=== PATIENT | female | born 1975 | race Caucasian/White ===

== ENCOUNTER 2016-09-01 19:23 | Inpatient (IN) | payer MEDICAID ==
[~2016-09-01] VITALS: Ht 167.6 cm; Wt 95.1 kg
[2016-09-01 19:48] VITALS: Ht 167.6 cm; Wt 95.1 kg
[2016-09-01 19:49] VITALS: BP 127/67; PULSE 101; RESP 18
[2016-09-01] MEDS ORDERED: PREN-93 PO (19:52)
[2016-09-01] MEDS ORDERED: LABE100T39 PO (19:53)
[2016-09-01] MEDS ORDERED: NIFEdipine 10 MG CAP PO ONE (20:30)
--- NOTE | 2016-09-01 20:30 | RADRPT ---
PROCEDURE: US OB biophysical profile. CLINICAL INDICATION: evaluation, contractions, bleeding TECHNIQUE: Multiple sonographic images of the pelvis were obtained. The images were reviewed on a PACS workstation. COMPARISON: No prior studies are available for comparison. FINDINGS: The cervix is closed and measures 4.1 cm in length. There is a single viable intrauterine gestation. Cardiac activity is present with 152 beats per min [place]. There is a vertex presentation. The placenta is anterior. There is no evidence of placental abruption. There is a mildly low amount of amniotic fluid with an MYNOR = 7.5 cm. Biophysical profile: movement 2/2 tone 2/2. breathing 2/2 MYNOR 2/2 Total 11/25 RPTAT: AA . IMPRESSION: Normal biophysical profile. Mildly low MYNOR of 7.5 cm. The cervix is closed and measures 4.1 cm in length. Physician Ashley Date Time Electronically viewed and signed by Physician Ashley on 09/01/2016 20:30 /
[2016-09-01] MEDS: LACTATED RINGER'S 1,000 ML IV SCH ×2 (20:38→21:35)
[2016-09-01 20:51] LABS: ADD SCAN DIFF NO
[2016-09-01 20:55] LABS: BASOPHILS % 0.3 % (0.0-2.0); EOSINOPHILS # 0.1 10^3/ul (0.0-0.5); EOSINOPHILS % 0.9 % (0.0-7.0); HEMATOCRIT 32.3 % (37.0-47.0); HEMOGLOBIN 10.7 g/dl (12.0-16.0); LYMPHOCYTES # 1.7 10^3/ul (0.8-2.9); LYMPHOCYTES % 15.1 % (15.0-51.0); MEAN CORPUSCULAR HEMOGLOBIN 27.9 pg (29.0-33.0); MEAN CORPUSCULAR HGB CONC 33.1 g/dl (32.0-37.0); MEAN CORPUSCULAR VOLUME 84.1 fl (82.0-101.0); MEAN PLATELET VOLUME 10.2 fl (7.4-10.4); MONOCYTES % 8.8 % (0.0-11.0); NEUTROPHIL # 8.5 10^3/ul (1.6-7.5); NEUTROPHILS % 74.3 % (39.0-77.0); PLATELET COUNT 248 10^3/UL (140-415); RED BLOOD COUNT 3.84 10^6/ul (4.20-5.40); RED CELL DISTRIBUTION WIDTH 12.7 % (11.5-14.5); WHITE BLOOD COUNT 11.5 10^3/ul (4.8-10.8)
[2016-09-01 20:57] LABS: ADD UMIC YES; URINE BILIRUBIN (Dip) NEGATIVE (NEGATIVE); URINE BLOOD (Dip) 3+ (NEGATIVE); URINE COLOR LT. YELLOW (YELLOW); URINE GLUCOSE (Dip) NEGATIVE (NEGATIVE); URINE KETONES (Dip) NEGATIVE (NEGATIVE); URINE LEUKOCYTE ESTERASE (Dip) NEGATIVE (NEGATIVE); URINE NITRITE (Dip) NEGATIVE (NEGATIVE); URINE TOTAL PROTEIN (Dip) NEGATIVE (NEGATIVE); URINE UROBILINOGEN (Dip) 0.2 E.U./dL (0.1-1.0)
[2016-09-01 21:16] LABS: BACTERIA,URINE FEW; SQUAMOUS EPITHELIAL CELL,UR MODERATE
[2016-09-01] MEDS ORDERED: LACTATED RINGER'S 1,000 ML IV SCH (21:17)
[2016-09-01] MEDS ORDERED: MAGNESIUM SULFATE 4 GM/100 ML 100 ML IV ONE (21:30)
[2016-09-01] MEDS: MAGNESIUM SULFATE 20 GM/500 ML 500 ML IV SCH (22:34)
--- NOTE | 2016-09-01 23:33 | TRIAGE ---
OB Triage Datetime Report Generated by CPN: 09/01/2016 23:33 Datetime: 09/01/2016 23:00 Labor Evaluation Frequency: IRREG Monitor Mode: External Duration (sec)2399: 60-70 Quality: Mild Resting Tone [place]: Relaxed Pain Presence: None/Denies Pain Type: N/A Datetime: 09/01/2016 22:34 Stage of : Antepartum Datetime: 09/01/2016 22:05 Stage of : Antepartum Temperature Route: Oral Contraction Comments: PT DENIES UC'S Pain Presence: None/Denies Pain Type: N/A Datetime: 09/01/2016 21:50 Assessment Type: Admission Assessment Maternal Assessment Level of Consciousness: Fully Conscious DTR's/Clonus: DTRs 2+; No Clonus Headache: Denies Blurred Vision: No Respiratory Effort: Unlabored; Regular Rhythm; Equal Expansion Breath Sounds, Left: Clear and Equal Breath Sounds, Right: Clear and Equal Nausea/Vomiting: Denies RUQ Epigastric Pain: Denies Lower Extremities Edema: None Degree: None Upper Extremities Edema: None Degree: None Facial Edema: None Fall Risk Assessment History of Falling: (0) No Secondary Diagnosis: (0) No Ambulatory Aid: (0) Bedrest/Nurse Assist IV Therapy: (0) No Gait: (0) Normal/Bedrest/Immobile Mental Status: (0) Oriented to Own Ability Fall Score: 0 Fall Risk Score Definition: No Risk: No action required Datetime: 09/01/2016 21:39 Time of Arrival: 09/01/2016 21:39 EGA: 32.6 Arrived By: Wheelchair Arrived From: Other Unit in Hospital Datetime: 09/01/2016 21:23 Vaginal Exam Membrane Status: Intact Datetime: 09/01/2016 21:00 Stage of : OB Triage Labor Evaluation Frequency: 3-5 Monitor Mode: External Duration (sec)2399: 60 Duration (sec)2399: 30-50 Quality: Mild Pattern: Normal: <= 5 Contractions in 10 Minutes Resting Tone [place]: Relaxed Heart Rate FHR Baseline Rate: 135 Monitor Mode: External US FHR Baseline Changes: No Baseline Change Variability: Moderate 6-25 bpm Accelerations: 15X15 Decelerations: None Category: Category I Datetime: 09/01/2016 20:49 Heart Rate FHR Baseline Rate: 135 Monitor Mode: External US FHR Baseline Changes: No Baseline Change Variability: Moderate 6-25 bpm Accelerations: 10X10 Decelerations: None Category: Category I Datetime: 09/01/2016 20:00 Stage of : OB Triage Labor Evaluation Frequency: 3-5 Monitor Mode: External Duration (sec)2399: 60 Quality: Mild Pattern: Normal: <= 5 Contractions in 10 Minutes Resting Tone [place]: Relaxed Heart Rate FHR Baseline Rate: 135 Monitor Mode: External US FHR Baseline Changes: No Baseline Change Variability: Moderate 6-25 bpm Accelerations: 10X10 Decelerations: None Category: Category I Datetime: 09/01/2016 19:38 Stage of : OB Triage Assessment Type: Triage Time of Arrival: 09/01/2016 19:19 EGA: 32.6 Arrived By: Wheelchair Arrived From: Home Chief Complaint: BLEEDING THAT STARTED @ 1730 LIKE A PERIOD Movement: Present Contractions: Irregular Rupture of Membranes: Unsure Vaginal Discharge: Present Recent Sexual Intercouse: Denies Abdominal Trauma: Not Applicable Patient Complaints: None Additional Patient Complaints: PT STATES HX OF HTN ON LABETALOL BID Time Provider Notified: 09/01/2016 20:00 Provider Notified: PARK Initial Plan: CALL MD, EFM Maternal Assessment Level of Consciousness: Fully Conscious DTR's/Clonus: DTRs 2+; No Clonus Headache: Denies Blurred Vision: No Respiratory Effort: Unlabored; Regular Rhythm; Equal Expansion Breath Sounds, Left: Clear and Equal Breath Sounds, Right: Clear and Equal Nausea/Vomiting: Denies RUQ Epigastric Pain: Denies Lower Extremities Edema: Bilateral Lower Extremities Degree: 1+ Upper Extremities Edema: None Facial Edema: None Temperature Route: Oral Fall Risk Assessment History of Falling: (0) No Secondary Diagnosis: (0) No Ambulatory Aid: (0) Bedrest/Nurse Assist IV Therapy: (0) No Gait: (0) Normal/Bedrest/Immobile Mental Status: (0) Oriented to Own Ability Fall Score: 0 Fall Risk Score Definition: No Risk: No action required Monitor Mode: External Monitor Mode: External US Pain Assessment Pain Scale: 0
[2016-09-01] MEDS: BETAMET NA PHOS/AC(6 MG/ML) 5ML INJ IM SCH (23:57)
[2016-09-02] MEDS: DOCUSATE SODIUM 100 MG CAP PO SCH (09:02)
[2016-09-02] MEDS: MULTIVIT/MIN/FOLATE/IRON/PREN TAB PO SCH (09:02)
[2016-09-02] MEDS: MAGNESIUM SULFATE 20 GM/500 ML 500 ML IV SCH ×2 (09:02→19:08)
[2016-09-02] MEDS: LABETALOL 100 MG TAB PO SCH ×2 (09:05→21:26)
[2016-09-02] MEDS: LACTATED RINGER'S 1,000 ML IV SCH ×3 (10:22→23:40)
--- NOTE | 2016-09-02 15:00 | RADRPT ---
PROCEDURE: US OB. CLINICAL INDICATION: Low MYNOR , pain TECHNIQUE: Transabdominal views of the pelvis are available for review. COMPARISON: 09/01/16 FINDINGS: There is a single intrauterine gestation in a vertex position. The heart rate is noted at 129 -132 bpm. The placenta is anterior. RPTAT: AA IMPRESSION: Single intrauterine gestation in a vertex position. .Dwayne Massey MD, MD Date Time Electronically viewed and signed by .Dwayne Massey MD, on 09/02/2016 15:00 .S/
--- NOTE | 2016-09-02 21:00 | HP ---
Date/Time of Note Date/Time of Note late entry DATE: 09/01/16 OB - History Hx of Present Free Text/Dictation admitted at 34+ weeks C/O vaginal bleeding started 1700 PM 09/01/2016 Last Menstrual Period: Jan 16, 2016 Estimated Due Date: Oct 22, 2016 : 3 Para: 2 Care: Good Care Ultrasounds: Normal mid trimester US Obstetrical Complications: None Medical Complications: Other (Chronic HTN ) Past Family/Social History * Past Medical, Surgical, Family and Obstetric Histories reviewed from chart. Blood Type: O+ Rubella: immune RPR/VDRL: Negative GBS Status: Unknown HBsAG: Negative OB Admission Exam Vital Signs Vital Signs Vital Signs Date Time Temp Pulse Resp B/P Pulse Ox O2 Delivery O2 Flow Rate FiO2 09/01/16 19:49 98.9 101 18 127/67 Room Air Physical Exam HEENT: WNL Heart: Rhythm Normal Lungs: Clear, Equal Abdomen: WNL Extremities: Normal Reflexes: Normal Cervical Dilatation: Fingertip Effacement: 0% Station: -3 Membranes: Intact Heart Rate: 140's Decelerations: Early Decelerations Varibility: Marked Contractions on Admission: < 5 Minutes Apart Date/Time Contractions Began: 09/01/2016 1700 PM Frequency of Contractions: ? Duration: ? Intensity: Mild Last 72 hours Lab Results CBC & BMP 09/01/16 20:38 Magnesium Level Test 09/02/16 05:23 09/02/16 13:01 09/02/16 18:25 Magnesium Level 4.3 H 4.7 H 4.9 H OB Assessment/Plan Reason for admission: labor Other Assessment: 34 + weeks gestation Other plan: tocolysis of labor SOFIA TORRES MD September 02, 2016 21:00
--- NOTE | 2016-09-02 21:02 | PN ---
Date/Time of Note Date/Time of Note DATE: 09/02/16 TIME: 21:00 OB Subjective Subjective Subjective No more C/O vaginal bleeding or uterine contractions OB Objective Objective Objective VSS P/E; unchanged on EFM no UCs seen OB Assessment/Plan Reason for admission: labor Other Assessment: resolving labor Other plan: will D/C magnesium sulfate next day SOFIA TORRES MD September 02, 2016 21:02
[2016-09-02] MEDS: BETAMET NA PHOS/AC(6 MG/ML) 5ML INJ IM SCH (23:59)
[2016-09-03] MEDS: MAGNESIUM SULFATE 20 GM/500 ML 500 ML IV SCH ×2 (05:02→15:15)
[2016-09-03] MEDS: MULTIVIT/MIN/FOLATE/IRON/PREN TAB PO SCH (08:48)
[2016-09-03] MEDS: DOCUSATE SODIUM 100 MG CAP PO SCH (08:48)
[2016-09-03] MEDS: LABETALOL 100 MG TAB PO SCH (08:48)
[2016-09-03] MEDS: LACTATED RINGER'S 1,000 ML IV SCH ×2 (13:05→20:01)
[2016-09-03] MEDS: NIFEdipine 10 MG CAP PO SCH ×2 (18:22→23:56)
--- NOTE | 2016-09-03 20:19 | DS ---
Date/Time of Note Date/Time of Note home next day if stays without uterine contractions DATE: 09/03/16 TIME: 20:17 Obstetrical Discharge Record Final Diagnosis Final Diagnosis: not delivered Other Final Diagnosis labor Complications Tocolytics: Magnesium Sulfate, Other (nifedipine ) Condition on Discharge Physical Assessment Voiding: Yes Bowel Movement: Yes Breast: Soft, non-tender, Filling Fundus: Other (gravid ) Abdomen and Incision: soft and gravid Episiotomy: NA Calf Tenderness: No Patient Condition: Good SOFIA TORRES MD September 03, 2016 20:19
--- NOTE | 2016-09-03 20:22 | DS ---
Date/Time of Note Date/Time of Note DATE: 09/03/16 TIME: 20:19 Discharge Summary Admission/Discharge Info Admit Date/Time September 01, 2016 at 21:15 Discharge Date/Time 09/04/2016 Final Diagnosis S/P labor Patient Condition: Good Procedures none Hx of Present Illness 41 y/o female admitted in labor and tocolysis of labor Hospital Course uncomplicated Home Meds Reported Medications Labetalol Hcl (Labetalol Hcl) 100 Mg Tab, 100 MG PO BID, TAB 09/01/16 Vit No.124/Iron/FA ( Vitamin Tablet) 1 Each Tablet, 1 EACH PO, TAB 09/01/16 Follow-up Plan 2 days in clinic Primary Care Provider Care Physician No Primary Pending Labs Laboratory Tests Test 09/02/16 23:55 09/03/16 05:40 09/03/16 11:45 09/03/16 18:00 Magnesium Level 4.8mg/dl (1.7-2.5) 4.9mg/dl (1.7-2.5) 4.9mg/dl (1.7-2.5) 4.7mg/dl (1.7-2.5) SOFIA TORRES MD September 03, 2016 20:22
--- NOTE | 2016-09-03 20:25 | PD.PPDC ---
[facility] [employer] Discharge Instruction Provider Information Physician Information 41 y/o female admitted with UCs and had tocolysis of labor Diagnosis Final Diagnosis: S/P uterine contractions Condition Patient Condition: Good Diet Diet: Resume Regular Diet Activity/Restrictions Activity: Bedrest May Shower Restrictions: No Exercising No Lifting Nothing in the Vagina Follow-up Follow-up with Physician: 1, 2, Day/Days (in clinic) Return to clinic for [employer] Instructions: Excessive Vaginal Bleeding SOFIA TORRES MD September 03, 2016 20:25
[2016-09-03] MEDS: SENNA TAB PO SCH (21:55)
[2016-09-03] MEDS ORDERED: MAGNESIUM HYDROXIDE 30ML CUP PO PRN (22:00)
[2016-09-04] MEDS: LACTATED RINGER'S 1,000 ML IV SCH (02:01)
[2016-09-04] MEDS: NIFEdipine 10 MG CAP PO SCH (06:28)
[2016-09-04] MEDS: MULTIVIT/MIN/FOLATE/IRON/PREN TAB PO SCH (09:18)
[2016-09-04] MEDS: SENNA TAB PO SCH (09:18)
[2016-09-04] MEDS: DOCUSATE SODIUM 100 MG CAP PO SCH (09:18)
== END 2016-09-04 10:20 | disposition home or self-care (01) | DRG 781 ==
LOC: OBT 19:23 → L-D 19:23 → OBG 21:15 → OBT 21:15
PROVIDERS: ADMIT Obstetrics & Gynecology; ATTEND Obstetrics & Gynecology
DX: O46.93 Antepartum hemorrhage, unspecified, third trimester (principal); O10.913 Unspecified pre-existing hypertension complicating pregnancy, third trimester; Z3A.34 34 weeks gestation of pregnancy
CPT/HCPCS: 36415; 76815; 76817; 76818; 81001; 81003; 83735; 85025; 87086; 96360; G0463; J0702; J3475; J7120

== ENCOUNTER 2016-09-16 20:33 | Outpatient (CLI) | payer MEDICAID ==
[~2016-09-16] VITALS: Ht 165.1 cm; Wt 96.7 kg
[~2016-09-16 20:33] MED LIST: PREN-93 PO
[2016-09-16 21:11] VITALS: BP 141/87; PULSE 115; RESP 18
[2016-09-16] MEDS ORDERED: CALC600T5 PO (21:16)
[2016-09-16] MEDS ORDERED: PRO20 PO (21:16)
[2016-09-16] MEDS ORDERED: FERR134T PO (21:16)
--- NOTE | 2016-09-16 21:52 | RADRPT ---
PROCEDURE: US OB biophysical profile. CLINICAL INDICATION: Biophysical profile and amniotic fluid index request. TECHNIQUE: Multiple sonographic images of the pelvis were obtained. The images were reviewed on a PACS workstation. COMPARISON: None FINDINGS: Presentation: Cephalic Cardiac activity is present with 146 beats per minute. The placenta is anterior grade II. Amniotic fluid index: 15 cm Biophysical profile: movement 2/2 tone 2/2. breathing 2/2 MYNOR 2/2 Total 11/25 IMPRESSION: 1. Normal biophysical profile. 2. Amniotic fluid index: 15 cm RPTAT:AAJJ . Physician Keely Date Time Electronically viewed and signed by Physician Keely on 09/16/2016 21:52 ADRIANA/
[2016-09-16 22:04] LABS: ADD UMIC NO; URINE BILIRUBIN (Dip) NEGATIVE (NEGATIVE); URINE BLOOD (Dip) NEGATIVE (NEGATIVE); URINE COLOR LT. YELLOW (YELLOW); URINE GLUCOSE (Dip) NEGATIVE (NEGATIVE); URINE KETONES (Dip) NEGATIVE (NEGATIVE); URINE LEUKOCYTE ESTERASE (Dip) NEGATIVE (NEGATIVE); URINE NITRITE (Dip) NEGATIVE (NEGATIVE); URINE TOTAL PROTEIN (Dip) NEGATIVE (NEGATIVE); URINE UROBILINOGEN (Dip) 0.2 E.U./dL (0.1-1.0)
--- NOTE | 2016-09-16 22:33 | PN ---
Date/Time of Note Date/Time of Note DATE: 09/16/16 TIME: 22:21 OB Subjective Subjective Subjective was sent for NST and BPP for PIH/ch HTN AT [id number] was admitted forPTL and HTN on 09/01/16 sent home with procardia 20mg q6hr and labetalil 100mg q12hr no subjective sxs OB Objective Objective Objective BP 141/87 131/77 121/70 TRACING reactive CAT I uc 10min apqrt not symptomatic neg pretibioal edema' no proteinuria HEENT: WNL Heart: Rhythm Normal Lungs: Clear, Equal Abdomen: WNL Extremities: Normal Reflexes: Normal OB Assessment/Plan Other Assessment: hx of PTL on procardia 20mg q6hr HTN on labeltalol 100mg q12hr Other plan: f/u at [facility] clinic for biweekly antepartum test along with f/u at clinic RAYMOND DALEY MD September 16, 2016 22:32
--- NOTE | 2016-09-16 22:37 | TRIAGE ---
OB Triage Datetime Report Generated by CPN: 09/16/2016 22:36 Datetime: 09/16/2016 22:12 Stage of : OB Triage Monitor Mode: External Quality: Mild Pattern: Normal: <= 5 Contractions in 10 Minutes Resting Tone [place]: Relaxed Heart Rate FHR Baseline Rate: 140 Monitor Mode: External US Variability: Moderate 6-25 bpm Accelerations: 15X15 Decelerations: None Category: Category I Datetime: 09/16/2016 21:50 Stage of : OB Triage Labor Evaluation Frequency: 10-12min Monitor Mode: External Duration (sec)2399: 40-50sec Quality: Mild Pattern: Normal: <= 5 Contractions in 10 Minutes Resting Tone [place]: Relaxed Contraction Comments: pt denies feeling ucs. Heart Rate FHR Baseline Rate: 140 Monitor Mode: External US FHR Baseline Changes: No Baseline Change Variability: Moderate 6-25 bpm Accelerations: 15X15 Decelerations: None Category: Category I Datetime: 09/16/2016 21:19 Time of Arrival: 09/16/2016 20:30 EGA: 34.6 Arrived By: Ambulatory Arrived From: Home Chief Complaint: w/ hx low TOÑO-A, HTN and PTL sent from clinic for NST/BPP Movement: Present Contractions: Denies/Absent Rupture of Membranes: Denies Vaginal Bleeding: None Vaginal Discharge: Denies Recent Sexual Intercouse: Denies Abdominal Trauma: Not Applicable Patient Complaints: None Time Provider Notified: 09/16/2016 21:50 Provider Notified: Dr Kincaid Initial Plan: NST/BPP Datetime: 09/16/2016 20:51 Stage of : OB Triage Maternal Assessment Level of Consciousness: Fully Conscious Headache: Denies Blurred Vision: No Respiratory Effort: Unlabored Nausea/Vomiting: Denies RUQ Epigastric Pain: Denies Facial Edema: None Labor Evaluation Frequency: plac ed Monitor Mode: External Resting Tone [place]: Relaxed Monitor Mode: External US Comments: FHT 140 Pain Assessment Pain Scale: 0 Pain Presence: None/Denies Pain Type: N/A Datetime: 09/04/2016 10:00 Stage of : Antepartum Labor Evaluation Frequency: NONE Monitor Mode: External Resting Tone [place]: Relaxed Heart Rate FHR Baseline Rate: 140 FHR Baseline Changes: No Baseline Change Variability: Moderate 6-25 bpm Accelerations: 15X15 Decelerations: None Category: Category I Pain Assessment Pain Scale: 0 Pain Presence: None/Denies Pain Goal: 3 Datetime: 09/04/2016 09:00 Stage of : Antepartum Labor Evaluation Frequency: 2 IN AN HOUR Monitor Mode: External Duration (sec)2399: 40-50 Quality: Mild Pattern: Normal: <= 5 Contractions in 10 Minutes Resting Tone [place]: Relaxed Heart Rate FHR Baseline Rate: 140 FHR Baseline Changes: No Baseline Change Variability: Moderate 6-25 bpm Accelerations: 15X15 Decelerations: None Category: Category I Pain Assessment Pain Scale: 0 Pain Presence: None/Denies Pain Goal: 3 Datetime: 09/04/2016 08:30 Assessment Type: Ongoing Assessment Maternal Assessment Level of Consciousness: Fully Conscious DTR's/Clonus: DTRs 2+; No Clonus Headache: Denies Blurred Vision: No Respiratory Effort: Unlabored; Regular Rhythm; Equal Expansion Breath Sounds, Left: Clear and Equal Breath Sounds, Right: Clear and Equal Nausea/Vomiting: Denies RUQ Epigastric Pain: Denies Lower Extremities Edema: None Degree: None Upper Extremities Edema: None Degree: None Facial Edema: None Fall Risk Assessment History of Falling: (0) No Secondary Diagnosis: (0) No Ambulatory Aid: (0) Bedrest/Nurse Assist IV Therapy: (0) No Gait: (0) Normal/Bedrest/Immobile Mental Status: (0) Oriented to Own Ability Fall Score: 0 Fall Risk Score Definition: No Risk: No action required Datetime: 09/04/2016 08:00 Stage of : Antepartum Labor Evaluation Frequency: NONE Monitor Mode: External Resting Tone [place]: Relaxed Heart Rate FHR Baseline Rate: 140 FHR Baseline Changes: No Baseline Change Variability: Moderate 6-25 bpm Accelerations: 15X15 Decelerations: None Category: Category I Pain Assessment Pain Scale: 0 Pain Presence: None/Denies Pain Goal: 3 Datetime: 09/04/2016 07:00 Stage of : Antepartum Labor Evaluation Frequency: x3 Monitor Mode: External Duration (sec)2399: 40-50 Quality: Mild Pattern: Normal: <= 5 Contractions in 10 Minutes Resting Tone [place]: Relaxed Heart Rate FHR Baseline Rate: 130 Monitor Mode: External US Variability: Moderate 6-25 bpm Accelerations: 15X15 Decelerations: None Category: Category I Datetime: 09/04/2016 06:00 Stage of : Antepartum Labor Evaluation Frequency: occasional Monitor Mode: External Duration (sec)2399: 40-50 Quality: Mild Pattern: Normal: <= 5 Contractions in 10 Minutes Resting Tone [place]: Relaxed Heart Rate FHR Baseline Rate: 130 Monitor Mode: External US Variability: Moderate 6-25 bpm Accelerations: 15X15 Decelerations: None Category: Category I Pain Assessment Pain Scale: 0 Pain Presence: None/Denies Pain Type: N/A Pain Goal: 0 Datetime: 09/04/2016 04:57 Stage of : Antepartum Labor Evaluation Frequency: occasional Monitor Mode: External Duration (sec)2399: 40-50 Quality: Mild Pattern: Normal: <= 5 Contractions in 10 Minutes Resting Tone [place]: Relaxed Heart Rate FHR Baseline Rate: 130 Monitor Mode: External US Variability: Moderate 6-25 bpm Accelerations: 15X15 Decelerations: None Category: Category I Datetime: 09/04/2016 04:00 Stage of : Antepartum Labor Evaluation Frequency: irregular Monitor Mode: External Duration (sec)2399: 60-80 Quality: Mild Pattern: Normal: <= 5 Contractions in 10 Minutes Resting Tone [place]: Relaxed Heart Rate FHR Baseline Rate: 130 Monitor Mode: External US Variability: Moderate 6-25 bpm Accelerations: 15X15 Decelerations: None Category: Category I Datetime: 09/04/2016 03:00 Stage of : Antepartum Labor Evaluation Frequency: occasional Monitor Mode: External Duration (sec)2399: 50-60 Quality: Mild Pattern: Normal: <= 5 Contractions in 10 Minutes Resting Tone [place]: Relaxed Heart Rate FHR Baseline Rate: 130 Monitor Mode: External US Variability: Moderate 6-25 bpm Accelerations: 15X15 Decelerations: None Category: Category I Datetime: 09/04/2016 02:00 Labor Evaluation Frequency: x5 Monitor Mode: External Duration (sec)2399: 40-90 Quality: Mild Resting Tone [place]: Relaxed Contraction Comments: pt without complaint of uc pain. Heart Rate FHR Baseline Rate: 130 Monitor Mode: External US FHR Baseline Changes: No Baseline Change Variability: Moderate 6-25 bpm Accelerations: 15X15 Decelerations: None Category: Category I Datetime: 09/04/2016 01:00 Labor Evaluation Frequency: x3 Monitor Mode: External Duration (sec)2399: 80-100 Quality: Mild Resting Tone [place]: Relaxed Contraction Comments: pt without complaint of uc pain. Heart Rate FHR Baseline Rate: 130 Monitor Mode: External US FHR Baseline Changes: No Baseline Change Variability: Moderate 6-25 bpm Accelerations: 15X15 Decelerations: None Category: Category I Datetime: 09/04/2016 00:00 Labor Evaluation Frequency: x5 Monitor Mode: External Duration (sec)2399: 40-80 Quality: Mild Resting Tone [place]: Relaxed Contraction Comments: pt without complaint of uc pain. Heart Rate FHR Baseline Rate: 130 Monitor Mode: External US FHR Baseline Changes: No Baseline Change Variability: Moderate 6-25 bpm Accelerations: 15X15 Decelerations: None Category: Category I Datetime: 09/03/2016 23:55 Stage of : Antepartum Temperature Route: Oral Datetime: 09/03/2016 23:00 Labor Evaluation Frequency: x3 Monitor Mode: External Duration (sec)2399: 40 Quality: Mild Resting Tone [place]: Relaxed Contraction Comments: pt without complaint of uc pain. Heart Rate FHR Baseline Rate: 130 Monitor Mode: External US FHR Baseline Changes: No Baseline Change Variability: Moderate 6-25 bpm Accelerations: 10X10 Decelerations: None Category: Category I Datetime: 09/03/2016 22:00 Labor Evaluation Frequency: none Monitor Mode: External Resting Tone [place]: Relaxed Heart Rate FHR Baseline Rate: 130 Monitor Mode: External US FHR Baseline Changes: No Baseline Change Variability: Moderate 6-25 bpm Accelerations: 15X15 Decelerations: None Category: Category I Datetime: 09/03/2016 21:00 Labor Evaluation Frequency: none Monitor Mode: External Resting Tone [place]: Relaxed Heart Rate FHR Baseline Rate: 130 Monitor Mode: External US FHR Baseline Changes: No Baseline Change Variability: Moderate 6-25 bpm Accelerations: 15X15 Decelerations: None Category: Category I Datetime: 09/03/2016 20:45 Assessment Type: Ongoing Assessment Maternal Assessment Level of Consciousness: Fully Conscious DTR's/Clonus: DTRs 2+; No Clonus Headache: Denies Blurred Vision: No Respiratory Effort: Unlabored; Regular Rhythm; Equal Expansion Breath Sounds, Left: Clear and Equal Breath Sounds, Right: Clear and Equal Nausea/Vomiting: Denies RUQ Epigastric Pain: Denies Lower Extremities Edema: None Degree: None Upper Extremities Edema: None Degree: None Facial Edema: None Fall Risk Assessment History of Falling: (0) No Secondary Diagnosis: (0) No Ambulatory Aid: (0) Bedrest/Nurse Assist IV Therapy: (20) Yes Gait: (0) Normal/Bedrest/Immobile Mental Status: (0) Oriented to Own Ability Fall Score: 20 Fall Risk Score Definition: No Risk: No action required Datetime: 09/03/2016 20:44 Stage of : Antepartum Temperature Route: Oral Datetime: 09/03/2016 20:00 Labor Evaluation Frequency: x2 Monitor Mode: External Duration (sec)2399: 70 Quality: Mild Resting Tone [place]: Relaxed Contraction Comments: pt without complaint of uc pain. Heart Rate FHR Baseline Rate: 130 Monitor Mode: External US FHR Baseline Changes: No Baseline Change Variability: Moderate 6-25 bpm Accelerations: 15X15 Decelerations: None Category: Category I Datetime: 09/03/2016 19:22 Stage of : Antepartum Datetime: 09/03/2016 19:00 Stage of : Antepartum Labor Evaluation Frequency: NONE Monitor Mode: External Resting Tone [place]: Relaxed Heart Rate FHR Baseline Rate: 130 FHR Baseline Changes: No Baseline Change Variability: Moderate 6-25 bpm Accelerations: 15X15 Decelerations: None Category: Category I Pain Assessment Pain Scale: 0 Pain Presence: None/Denies Pain Goal: 3 Datetime: 09/03/2016 18:00 Stage of : Antepartum Labor Evaluation Frequency: 2 IN N HOUR Duration (sec)2399: 50-70 Quality: Mild Pattern: Normal: <= 5 Contractions in 10 Minutes Resting Tone [place]: Relaxed Heart Rate FHR Baseline Rate: 130 FHR Baseline Changes: No Baseline Change Variability: Moderate 6-25 bpm Accelerations: 15X15 Decelerations: None Category: Category I Pain Assessment Pain Scale: 0 Pain Presence: None/Denies Pain Goal: 3 Datetime: 09/03/2016 17:00 Stage of : Antepartum Maternal Assessment Level of Consciousness: Fully Conscious DTR's/Clonus: DTRs 1+ Headache: Denies Blurred Vision: No Nausea/Vomiting: Denies RUQ Epigastric Pain: Denies Facial Edema: None Labor Evaluation Frequency: NONE Monitor Mode: External Resting Tone [place]: Relaxed Heart Rate FHR Baseline Rate: 130 FHR Baseline Changes: No Baseline Change Variability: Moderate 6-25 bpm Accelerations: 15X15 Decelerations: None Category: Category I Pain Assessment Pain Scale: 0 Pain Presence: None/Denies Pain Goal: 3 Datetime: 09/03/2016 16:00 Stage of : Antepartum Maternal Assessment Level of Consciousness: Fully Conscious DTR's/Clonus: DTRs 1+ Headache: Denies Blurred Vision: No Breath Sounds, Left: Clear and Equal Breath Sounds, Right: Clear and Equal Nausea/Vomiting: Denies RUQ Epigastric Pain: Denies Facial Edema: None Labor Evaluation Frequency: 1 IN AN HOUR Monitor Mode: External Duration (sec)2399: 50 Quality: Mild Pattern: Normal: <= 5 Contractions in 10 Minutes Resting Tone [place]: Relaxed Heart Rate FHR Baseline Rate: 130 Monitor Mode: External US FHR Baseline Changes: No Baseline Change Variability: Moderate 6-25 bpm Accelerations: 15X15 Decelerations: None Category: Category I Pain Assessment Pain Scale: 0 Pain Presence: None/Denies Pain Goal: 3 Datetime: 09/03/2016 14:00 Stage of : Antepartum Maternal Assessment Level of Consciousness: Fully Conscious DTR's/Clonus: DTRs 1+ Headache: Denies Blurred Vision: No Nausea/Vomiting: Denies RUQ Epigastric Pain: Denies Facial Edema: None Labor Evaluation Frequency: NONE Monitor Mode: External Resting [place]one [place]: Relaxed Heart Rate FHR Baseline Rate: 130 Monitor Mode: External US FHR Baseline Changes: No Baseline Change Variability: Moderate 6-25 bpm Accelerations: 15X15 Decelerations: None Category: Category I Pain Assessment Pain Scale: 0 Pain Presence: None/Denies Pain Goal: 3 Datetime: 09/03/2016 13:00 Stage of : Antepartum Maternal Assessment Level of Consciousness: Fully Conscious DTR's/Clonus: DTRs 1+ Headache: Denies Blurred Vision: No Breath Sounds, Left: Clear and Equal Breath Sounds, Right: Clear and Equal Nausea/Vomiting: Denies RUQ Epigastric Pain: Denies Facial Edema: None Labor Evaluation Frequency: NONE Monitor Mode: External Resting [place]one [place]: Relaxed Heart Rate FHR Baseline Rate: 130 Monitor Mode: External US FHR Baseline Changes: No Baseline Change Variability: Moderate 6-25 bpm Accelerations: 15X15 Decelerations: None Category: Category I Pain Assessment Pain Scale: 0 Pain Presence: None/Denies Pain Goal: 3 Datetime: 09/03/2016 12:00 Stage of : Antepartum Maternal Assessment Level of Consciousness: Fully Conscious DTR's/Clonus: DTRs 1+ Headache: Denies Blurred Vision: No Breath Sounds, Left: Clear and Equal Breath Sounds, Right: Clear and Equal Nausea/Vomiting: Denies RUQ Epigastric Pain: Denies Facial Edema: None Labor Evaluation Frequency: NONE Monitor Mode: External Resting Tone [place]: Relaxed Heart Rate FHR Baseline Rate: 130 Monitor Mode: External US FHR Baseline Changes: No Baseline Change Variability: Moderate 6-25 bpm Accelerations: 15X15 Decelerations: None Category: Category I Pain Assessment Pain Scale: 0 Pain Presence: None/Denies Pain Goal: 3 Datetime: 09/03/2016 11:00 Stage of : Antepartum Maternal Assessment Level of Consciousness: Fully Conscious DTR's/Clonus: DTRs 1+ Headache: Denies Blurred Vision: No Breath Sounds, Left: Clear and Equal Breath Sounds, Right: Clear and Equal Nausea/Vomiting: Denies RUQ Epigastric Pain: Denies Facial Edema: None Labor Evaluation Frequency: NONE Monitor Mode: External Resting [place]one [place]: Relaxed Heart Rate FHR Baseline Rate: 130 Monitor Mode: External US FHR Baseline Changes: No Baseline Change Variability: Moderate 6-25 bpm Accelerations: 15X15 Decelerations: None Category: Category I Pain Assessment Pain Scale: 0 Pain Presence: None/Denies Pain Goal: 3 Datetime: 09/03/2016 10:00 Stage of : Antepartum Maternal Assessment Level of Consciousness: Fully Conscious DTR's/Clonus: DTRs 1+ Headache: Denies Blurred Vision: No Breath Sounds, Left: Clear and Equal Breath Sounds, Right: Clear and Equal Nausea/Vomiting: Denies RUQ Epigastric Pain: Denies Facial Edema: None Labor Evaluation Frequency: NONE Monitor Mode: External Resting [place]one [place]: Relaxed Heart Rate FHR Baseline Rate: 130 Monitor Mode: External US FHR Baseline Changes: No Baseline Change Variability: Moderate 6-25 bpm Accelerations: 15X15 Decelerations: None Category: Category I Pain Assessment Pain Scale: 0 Pain Presence: None/Denies Pain Goal: 3 Datetime: 09/03/2016 09:00 Stage of : Antepartum Maternal Assessment Level of Consciousness: Fully Conscious DTR's/Clonus: DTRs 1+ Headache: Denies Blurred Vision: No Breath Sounds, Left: Clear and Equal Breath Sounds, Right: Clear and Equal Nausea/Vomiting: Denies RUQ Epigastric Pain: Denies Facial Edema: None Labor Evaluation Frequency: NONE Monitor Mode: External Resting [place]one [place]: Relaxed Heart Rate FHR Baseline Rate: 125 Monitor Mode: External US FHR Baseline Changes: No Baseline Change Variability: Moderate 6-25 bpm Accelerations: 15X15 Decelerations: None Category: Category I Pain Assessment Pain Scale: 0 Pain Presence: None/Denies Pain Goal: 3 Datetime: 09/03/2016 08:00 Stage of : Antepartum Maternal Assessment Level of Consciousness: Fully Conscious DTR's/Clonus: DTRs 1+ Headache: Denies Blurred Vision: No Breath Sounds, Left: Clear and Equal Breath Sounds, Right: Clear and Equal Nausea/Vomiting: Denies RUQ Epigastric Pain: Denies Facial Edema: None Labor Evaluation Frequency: NONE Monitor Mode: External Resting [place]one [place]: Relaxed Heart Rate FHR Baseline Rate: 130 Monitor Mode: External US FHR Baseline Changes: No Baseline Change Variability: Moderate 6-25 bpm Accelerations: 15X15 Decelerations: None Category: Category I Pain Assessment Pain Scale: 0 Pain Presence: None/Denies Pain Goal: 3 Datetime: 09/03/2016 07:41 Assessment Type: Ongoing Assessment Maternal Assessment Level of Consciousness: Fully Conscious DTR's/Clonus: DTRs 2+; No Clonus Headache: Denies Blurred Vision: No Respiratory Effort: Unlabored; Regular Rhythm; Equal Expansion Breath Sounds, Left: Clear and Equal Breath Sounds, Right: Clear and Equal Nausea/Vomiting: Denies RUQ Epigastric Pain: Denies Lower Extremities Edema: None Degree: None Upper Extremities Edema: None Degree: None Facial Edema: None Fall Risk Assessment History of Falling: (0) No Secondary Diagnosis: (0) No Ambulatory Aid: (0) Bedrest/Nurse Assist IV Therapy: (0) No Gait: (0) Normal/Bedrest/Immobile Mental Status: (0) Oriented to Own Ability Fall Score: 0 Fall Risk Score Definition: No Risk: No action required Datetime: 09/03/2016 07:11 Stage of : Antepartum Datetime: 09/03/2016 06:55 Labor Evaluation Frequency: none Monitor Mode: External Resting Tone [place]: Relaxed Heart Rate FHR Baseline Rate: 125 Monitor Mode: External US FHR Baseline Changes: No Baseline Change Variability: Moderate 6-25 bpm Accelerations: 15X15 Decelerations: None Category: Category I Datetime: 09/03/2016 06:00 Labor Evaluation Frequency: none Monitor Mode: External Resting Tone [place]: Relaxed Heart Rate FHR Baseline Rate: 125 Monitor Mode: External US FHR Baseline Changes: No Baseline Change Variability: Moderate 6-25 bpm Accelerations: 15X15 Decelerations: None Category: Category I Datetime: 09/03/2016 05:00 Labor Evaluation Frequency: none Monitor Mode: External Resting Tone [place]: Relaxed Heart Rate FHR Baseline Rate: 130 Monitor Mode: External US FHR Baseline Changes: No Baseline Change Variability: Moderate 6-25 bpm Accelerations: 15X15 Decelerations: None Category: Category I Datetime: 09/03/2016 04:46 Stage of : Antepartum Temperature Route: Oral Datetime: 09/03/2016 04:00 Labor Evaluation Frequency: none Monitor Mode: External Resting Tone [place]: Relaxed Heart Rate FHR Baseline Rate: 130 Monitor Mode: External US FHR Baseline Changes: No Baseline Change Variability: Moderate 6-25 bpm Accelerations: 15X15 Decelerations: None Category: Category I Datetime: 09/03/2016 03:00 Labor Evaluation Frequency: none Monitor Mode: External Resting Tone [place]: Relaxed Heart Rate FHR Baseline Rate: 130 Monitor Mode: External US FHR Baseline Changes: No Baseline Change Variability: Moderate 6-25 bpm Accelerations: 15X15 Decelerations: None Category: Category I Datetime: 09/03/2016 02:00 Labor Evaluation Frequency: x1 Monitor Mode: External Duration (sec)2399: 50 Quality: Mild Resting Tone [place]: Relaxed Contraction Comments: pt without complaint of uc pain. Heart Rate FHR Baseline Rate: 130 Monitor Mode: External US FHR Baseline Changes: No Baseline Change Variability: Moderate 6-25 bpm Accelerations: 15X15 Decelerations: None Category: Category I Datetime: 09/03/2016 01:00 Labor Evaluation Frequency: none Monitor Mode: External Resting Tone [place]: Relaxed Heart Rate FHR Baseline Rate: 125 Monitor Mode: External US FHR Baseline Changes: No Baseline Change Variability: Moderate 6-25 bpm Accelerations: 15X15 Decelerations: None Category: Category I Datetime: 09/03/2016 00:00 Labor Evaluation Frequency: none Monitor Mode: External Resting Tone [place]: Relaxed Heart Rate FHR Baseline Rate: 125 Monitor Mode: External US FHR Baseline Changes: No Baseline Change Variability: Moderate 6-25 bpm Accelerations: 15X15 Decelerations: None Category: Category I Datetime: 09/02/2016 23:00 Labor Evaluation Frequency: none Monitor Mode: External Resting Tone [place]: Relaxed Heart Rate FHR Baseline Rate: 130 Monitor Mode: External US FHR Baseline Changes: No Baseline Change Variability: Moderate 6-25 bpm Accelerations: 15X15 Decelerations: None Category: Category I Datetime: 09/02/2016 22:00 Labor Evaluation Frequency: x1 Monitor Mode: External Duration (sec)2399: 80 Quality: Mild Resting Tone [place]: Relaxed Contraction Comments: pt without complaint of uc pain. Heart Rate FHR Baseline Rate: 130 Monitor Mode: External US FHR Baseline Changes: No Baseline Change Variability: Moderate 6-25 bpm Accelerations: 15X15 Decelerations: None Category: Category I Datetime: 09/02/2016 21:00 Labor Evaluation Frequency: x2 Monitor Mode: External Duration (sec)2399: 40-50 Quality: Mild Resting Tone [place]: Relaxed Contraction Comments: pt without complaint of uc pain. Heart Rate FHR Baseline Rate: 125 Monitor Mode: External US FHR Baseline Changes: No Baseline Change Variability: Moderate 6-25 bpm Accelerations: 15X15 Decelerations: None Category: Category I Datetime: 09/02/2016 20:07 Assessment Type: Ongoing Assessment Maternal Assessment Level of Consciousness: Fully Conscious DTR's/Clonus: DTRs 2+; No Clonus Headache: Denies Blurred Vision: No Respiratory Effort: Unlabored; Regular Rhythm; Equal Expansion Breath Sounds, Left: Clear and Equal Breath Sounds, Right: Clear and Equal Nausea/Vomiting: Denies RUQ Epigastric Pain: Denies Lower Extremities Edema: None Degree: None Upper Extremities Edema: None Degree: None Facial Edema: None Fall Risk Assessment History of Falling: (0) No Secondary Diagnosis: (0) No Ambulatory Aid: (0) Bedrest/Nurse Assist IV Therapy: (20) Yes Gait: (0) Normal/Bedrest/Immobile Mental Status: (0) Oriented to Own Ability Fall Score: 20 Fall Risk Score Definition: No Risk: No action required Datetime: 09/02/2016 20:06 Stage of : Antepartum Temperature Route: Oral Datetime: 09/02/2016 20:00 Labor Evaluation Frequency: x2 Monitor Mode: External Duration (sec)2399: 40 Quality: Mild Resting Tone [place]: Relaxed Contraction Comments: pt without complaint of uc pain Heart Rate FHR Baseline Rate: 130 Monitor Mode: External US FHR Baseline Changes: No Baseline Change Variability: Moderate 6-25 bpm Accelerations: 15X15 Decelerations: None Category: Category I Datetime: 09/02/2016 18:56 Labor Evaluation Frequency: 0 Monitor Mode: External Resting Tone [place]: Relaxed Heart Rate FHR Baseline Rate: 125 Monitor Mode: External US FHR Baseline Changes: No Baseline Change Variability: Moderate 6-25 bpm Accelerations: 15X15 Decelerations: None Category: Category I Datetime: 09/02/2016 18:00 Labor Evaluation Frequency: 0 Monitor Mode: External Resting Tone [place]: Relaxed Heart Rate FHR Baseline Rate: 125 Monitor Mode: External US FHR Baseline Changes: No Baseline Change Variability: Moderate 6-25 bpm Accelerations: 15X15 Decelerations: None Category: Category I Datetime: 09/02/2016 17:00 Labor Evaluation Frequency: 0 Monitor Mode: External Resting Tone [place]: Relaxed Heart Rate FHR Baseline Rate: 125 Monitor Mode: External US FHR Baseline Changes: No Baseline Change Variability: Moderate 6-25 bpm Accelerations: 15X15 Decelerations: None Category: Category I Datetime: 09/02/2016 16:33 Labor Evaluation Frequency: 0 Monitor Mode: External Resting Tone [place]: Relaxed Heart Rate FHR Baseline Rate: 130 Monitor Mode: External US FHR Baseline Changes: No Baseline Change Variability: Moderate 6-25 bpm Accelerations: 15X15 Decelerations: None Category: Category I Datetime: 09/02/2016 16:05 Labor Evaluation Frequency: 0 Monitor Mode: External Resting Tone [place]: Relaxed Heart Rate FHR Baseline Rate: 130 Monitor Mode: External US Datetime: 09/02/2016 16:04 Stage of : Antepartum Temperature Route: Oral Pain Assessment Pain Scale: 0 Pain Presence: None/Denies Datetime: 09/02/2016 15:05 Labor Evaluation Frequency: 0 Monitor Mode: External Resting Tone [place]: Relaxed Heart Rate FHR Baseline Rate: 130 Monitor Mode: External US FHR Baseline Changes: No Baseline Change Variability: Moderate 6-25 bpm Accelerations: 15X15 Decelerations: None Category: Category I Datetime: 09/02/2016 14:51 Stage of : Antepartum Datetime: 09/02/2016 14:00 Labor Evaluation Frequency: 0 Monitor Mode: External Resting Tone [place]: Relaxed Heart Rate FHR Baseline Rate: LOSS OF INFORMATIONS,PT EATING Monitor Mode: External US Datetime: 09/02/2016 13:38 Stage of : Labor Datetime: 09/02/2016 13:00 Labor Evaluation Frequency: 0 Monitor Mode: External Resting Tone [place]: Relaxed Heart Rate FHR Baseline Rate: 130 Monitor Mode: External US FHR Baseline Changes: No Baseline Change Variability: Moderate 6-25 bpm Accelerations: 15X15 Decelerations: None Category: Category I Datetime: 09/02/2016 12:00 Labor Evaluation Frequency: 0 Monitor Mode: External Resting Tone [place]: Relaxed Heart Rate FHR Baseline Rate: 130 Monitor Mode: External US FHR Baseline Changes: No Baseline Change Variability: Moderate 6-25 bpm Accelerations: 15X15 Decelerations: None Category: Category I Datetime: 09/02/2016 11:43 Assessment Type: Ongoing Assessment Maternal Assessment Level of Consciousness: Fully Conscious DTR's/Clonus: DTRs 1+; No Clonus Headache: Denies Blurred Vision: Yes Respiratory Effort: Unlabored; Regular Rhythm Breath Sounds, Left: Clear and Equal Breath Sounds, Right: Clear and Equal Nausea/Vomiting: Denies Datetime: 09/02/2016 11:36 Stage of : Antepartum Datetime: 09/02/2016 11:08 Stage of : Antepartum Temperature Route: Oral Pain Assessment Pain Scale: 0 Pain Presence: None/Denies Datetime: 09/02/2016 11:00 Labor Evaluation Frequency: 0 Monitor Mode: External Resting Tone [place]: Relaxed Heart Rate FHR Baseline Rate: 130 (Annotations: POOR SIGNAL) Monitor Mode: External US Datetime: 09/02/2016 10:08 Stage of : Antepartum Pain Assessment Pain Scale: 0 Pain Presence: None/Denies Datetime: 09/02/2016 10:00 Assessment Type: Ongoing Assessment Maternal Assessment Level of Consciousness: Fully Conscious DTR's/Clonus: DTRs 1+; No Clonus Respiratory Effort: Unlabored; Regular Rhythm Labor Evaluation Frequency: 0 Monitor Mode: External Resting Tone [place]: Relaxed Heart Rate FHR Baseline Rate: 130 Monitor Mode: External US FHR Baseline Changes: No Baseline Change Variability: Moderate 6-25 bpm Accelerations: 15X15 Decelerations: None Category: Category I Datetime: 09/02/2016 09:04 Stage of : Antepartum Pain Assessment Pain Scale: 0 Pain Presence: None/Denies Datetime: 09/02/2016 09:00 Labor Evaluation Frequency: 0 Monitor Mode: External Resting Tone [place]: Relaxed Heart Rate FHR Baseline Rate: 130 Monitor Mode: External US FHR Baseline Changes: No Baseline Change Variability: Moderate 6-25 bpm Accelerations: 15X15 Decelerations: None Category: Category I Datetime: 09/02/2016 08:19 Stage of : Antepartum Temperature Route: Oral Pain Assessment Pain Scale: 0 Pain Presence: None/Denies Datetime: 09/02/2016 08:05 Labor Evaluation Frequency: 0 Monitor Mode: External Resting Tone [place]: Relaxed Heart Rate FHR Baseline Rate: 130 Monitor Mode: External US FHR Baseline Changes: No Baseline Change Variability: Moderate 6-25 bpm Accelerations: 15X15 Decelerations: None Category: Category I Datetime: 09/02/2016 08:00 Stage of : Antepartum Datetime: 09/02/2016 07:58 Assessment Type: Ongoing Assessment Maternal Assessment Level of Consciousness: Fully Conscious DTR's/Clonus: DTRs 2+; No Clonus Headache: Denies Blurred Vision: No Respiratory Effort: Unlabored; Regular Rhythm; Equal Expansion Breath Sounds, Left: Clear and Equal Breath Sounds, Right: Clear and Equal Nausea/Vomiting: Denies RUQ Epigastric Pain: Denies Lower Extremities Edema: None Degree: None Upper Extremities Edema: None Degree: None Facial Edema: None Fall Risk Assessment History of Falling: (0) No Secondary Diagnosis: (0) No Ambulatory Aid: (0) Bedrest/Nurse Assist IV Therapy: (20) Yes Gait: (0) Normal/Bedrest/Immobile Mental Status: (0) Oriented to Own Ability Fall Score: 20 Fall Risk Score Definition: No Risk: No action required Datetime: 09/02/2016 07:10 Stage of : Antepartum Datetime: 09/02/2016 07:00 Labor Evaluation Frequency: X3 Monitor Mode: External Duration (sec)2399: 70-80 Quality: Mild Resting Tone [place]: Relaxed Heart Rate FHR Baseline Rate: 125 Monitor Mode: External US Variability: Moderate 6-25 bpm Accelerations: 15X15 Decelerations: None Category: Category I Pain Presence: None/Denies Pain Type: N/A Datetime: 09/02/2016 06:00 DTR's/Clonus: DTRs 2+; No Clonus Labor Evaluation Frequency: X1 Monitor Mode: External Duration (sec)2399: 90 Quality: Mild Resting Tone [place]: Relaxed Heart Rate FHR Baseline Rate: 130 Monitor Mode: External US Variability: Moderate 6-25 bpm Accelerations: 15X15 Decelerations: Variable Category: Category II Datetime: 09/02/2016 05:00 Labor Evaluation Frequency: X2 Monitor Mode: External Duration (sec)2399: 80-100 Quality: Mild Resting Tone [place]: Relaxed Heart Rate FHR Baseline Rate: 130 Monitor Mode: External US Variability: Moderate 6-25 bpm Accelerations: 15X15 Decelerations: None Category: Category I Pain Presence: None/Denies Pain Type: N/A Datetime: 09/02/2016 04:00 DTR's/Clonus: DTRs 2+; No Clonus Breath Sounds, Left: Clear and Equal Breath Sounds, Right: Clear and Equal Labor Evaluation Frequency: X2 Monitor Mode: External Duration (sec)2399: 70-90 Quality: Mild Resting Tone [place]: Relaxed Heart Rate FHR Baseline Rate: 130 Monitor Mode: External US Variability: Moderate 6-25 bpm Accelerations: 15X15 Decelerations: None Category: Category I Pain Presence: None/Denies Pain Type: N/A Datetime: 09/02/2016 03:28 Stage of : Antepartum Datetime: 09/02/2016 03:00 Labor Evaluation Frequency: X2 Monitor Mode: External Duration (sec)2399: 70-80 Quality: Mild Resting Tone [place]: Relaxed Heart Rate FHR Baseline Rate: 135 Monitor Mode: External US Variability: Moderate 6-25 bpm Accelerations: 15X15 Decelerations: Variable Category: Category II Pain Presence: None/Denies Pain Type: N/A Pain Assessment Comments: PT SLEEPING WITH EVEN UNLABORED BREATHING Datetime: 09/02/2016 02:00 Maternal Assessment Level of Consciousness: Fully Conscious DTR's/Clonus: DTRs 2+; No Clonus Labor Evaluation Frequency: X6 Monitor Mode: External Duration (sec)2399: 60-100 Quality: Mild Resting Tone [place]: Relaxed Heart Rate FHR Baseline Rate: 135 Monitor Mode: External US Variability: Moderate 6-25 bpm Accelerations: 15X15 Decelerations: None Category: Category I Pain Presence: None/Denies Pain Type: N/A Datetime: 09/02/2016 01:00 Labor Evaluation Frequency: X6 Monitor Mode: External Duration (sec)2399: 60-80 Quality: Mild Resting Tone [place]: Relaxed Heart Rate FHR Baseline Rate: 130 Monitor Mode: External US Variability: Moderate 6-25 bpm Accelerations: 15X15 Decelerations: None Category: Category I Pain Presence: None/Denies Pain Type: N/A Datetime: 09/02/2016 00:00 Maternal Assessment Level of Consciousness: Fully Conscious DTR's/Clonus: DTRs 2+; No Clonus Breath Sounds, Left: Clear and Equal Breath Sounds, Right: Clear and Equal Labor Evaluation Frequency: X6 Monitor Mode: External Duration (sec)2399: 60-120 Quality: Mild Resting Tone [place]: Relaxed Heart Rate FHR Baseline Rate: 130 Monitor Mode: External US Variability: Moderate 6-25 bpm Accelerations: 15X15 Decelerations: None Category: Category I Pain Presence: None/Denies Pain Type: N/A Datetime: 09/01/2016 23:58 Contraction Comments: PT STATES THAT SHE DOES FEEL HER STOMACH BECOME HARD BUT IT IS NOT PAINFUL Datetime: 09/01/2016 21:50 Stage of : Antepartum Fall Score: 0 Fall Risk Score Definition: No Risk: No action required Datetime: 09/01/2016 21:39 EGA: 32.5 Datetime: 09/01/2016 19:38 EGA: 32.5 Fall Score: 0 Fall Risk Score Definition: No Risk: No action required
== END 2016-09-16 22:28 | disposition home or self-care (01) ==
LOC: L-D 20:33 → OBT 20:33
PROVIDERS: ATTEND Obstetrics & Gynecology
DX: O16.3 Unspecified maternal hypertension, third trimester (principal); O09.523 Supervision of elderly multigravida, third trimester; O09.213 Supervision of pregnancy with history of pre-term labor, third trimester; Z3A.34 34 weeks gestation of pregnancy
CPT/HCPCS: 76818; 81003; Z7500; G0463

== ENCOUNTER 2016-09-19 20:03 | Outpatient (CLI) | payer MEDICAID ==
[~2016-09-19 20:03] MED LIST changes: +CALC600T5 PO; +FERR134T PO; +PRO20 PO
--- NOTE | 2016-09-19 22:14 | RADRPT ---
PROCEDURE: OB ultrasound for biophysical profile CLINICAL INDICATION: Biophysical profile. . labor TECHNIQUE: Multiple sonographic images of the pelvis were obtained. Transabdominal views are obta ined. COMPARISON: 09/16/2016 FINDINGS: Single intrauterine gestation. Presentation: Cephalic. Placenta: Anterior. No evidence of placental abruption. No evidence of placenta previa. breathing movement = 2/2 tone = 2/2 motion = 2/2 MYNOR = 2/2 MYNOR = 7.2 cm; previously 14.9 cm heart rate: 154 beats per minute IMPRESSION: Single intrauterine gestation. Biophysical profile 11/25 MYNOR = 7.2 cm; previously 14.9 cm RPTAT: AADD .Ellis Morrison MD, Date Time Electronically viewed and signed by .Ellis Morrison MD, on 09/19/2016 22:14 .B/
[2016-09-19] MEDS ORDERED: LACTATED RINGER'S 1,000 ML IV ONE (23:00)
--- NOTE | 2016-09-19 23:29 | QN ---
Documentation Comment Laborist Dr Kincaid's pt 41 y.o. with an IUP at 35w 2d here for a bi-weekly NST/BPP for hypertension and a h/o PTL. Pt is awaiting approval to go to NST clinic instead of coming here. Denies GIRARD's, visual changes or epigastric pain. No Vb or leaking. PMHx: HTN. H/o PTL. PSHx: C/S x 1. POBHx: C/S x 1. x 1. NKDA. BP 139/75 T=98.4 NST:baseline 150 bpm with accels to 170 bpm. No decels. no UC's. BPP 8/8 with an MYNOR of 7.2. OF NOTE, her prior MYNOR was 14.9 a few days ago. A:IUP at 35w 2d. Pregestational HTN. A: One liter of IVF's by bolus then may d/c home to return in 2 days for a repeat MYNOR check. KAMERON GALLEGOS MD Sep 19, 2016 23:29
--- NOTE | 2016-09-20 00:02 | TRIAGE ---
OB Triage Datetime Report Generated by CPN: 09/20/2016 00:02 Datetime: 09/19/2016 20:00 Time of Arrival: 09/19/2016 19:58 EGA: 35.2 Arrived By: Ambulatory Arrived From: Home Chief Complaint: to OB triage w/ orders for NST/BPP d/t HTN and PTL Movement: Present Contractions: Denies/Absent Rupture of Membranes: Denies Vaginal Bleeding: None Vaginal Discharge: Denies Recent Sexual Intercouse: Denies Abdominal Trauma: Not Applicable Patient Complaints: None Time Provider Notified: 09/19/2016 20:30 Provider Notified: Dr Kincaid Initial Plan: NST/BPP Datetime: 09/16/2016 21:19 EGA: 34.6 Datetime: 09/04/2016 08:30 Fall Risk Assessment Fall Score: 0 Fall Risk Score Definition: No Risk: No action required Datetime: 09/03/2016 20:45 Fall Risk Assessment Fall Score: 20 Fall Risk Score Definition: No Risk: No action required Datetime: 09/03/2016 07:41 Fall Risk Assessment Fall Score: 0 Fall Risk Score Definition: No Risk: No action required Datetime: 09/02/2016 20:07 Fall Risk Assessment Fall Score: 20 Fall Risk Score Definition: No Risk: No action required Datetime: 09/02/2016 07:58 Fall Risk Assessment Fall Score: 20 Fall Risk Score Definition: No Risk: No action required Datetime: 09/01/2016 21:50 Fall Risk Assessment Fall Score: 0 Fall Risk Score Definition: No Risk: No action required Datetime: 09/01/2016 21:39 EGA: 32.5 Datetime: 09/01/2016 19:38 EGA: 32.5 Fall Risk Assessment Fall Score: 0 Fall Risk Score Definition: No Risk: No action required
== END 2016-09-19 23:53 | disposition home or self-care (01) ==
LOC: OBT 20:03 → L-D 20:03 → OBT 23:53
PROVIDERS: ATTEND Obstetrics & Gynecology
DX: O10.913 Unspecified pre-existing hypertension complicating pregnancy, third trimester (principal); O09.213 Supervision of pregnancy with history of pre-term labor, third trimester; O09.523 Supervision of elderly multigravida, third trimester; Z3A.35 35 weeks gestation of pregnancy
CPT/HCPCS: 76818; J7120

== ENCOUNTER 2016-09-21 19:58 | Outpatient (CLI) | payer MEDICAID ==
[2016-09-21 20:22] VITALS: BP 130/87; PULSE 112; RESP 18
--- NOTE | 2016-09-21 21:38 | RADRPT ---
PROCEDURE: US OB. CLINICAL INDICATION: Decreased MYNOR TECHNIQUE: Pelvic ultrasound performed for biophysical profile. COMPARISON: None FINDINGS: Single intrauterine gestation present with heart rate at 142 beats per minute. Presentation is ceph alic. Placenta is anterior, grade I. Amniotic fluid volume is within normal limits, with MYNOR = 1 2.2 cm. IMPRESSION: Single live intrauterine gestation in cephalic presentation. MYNOR is within lower normal limits of 12.2 cm. .Serafin Bai MD, Date Time Electronically viewed and signed by .Serafin Bai MD, on 09/21/2016 21:38 .M/
[2016-09-21] MEDS ORDERED: TERBUTALINE 1 ML ONE (23:01)
[2016-09-21] MEDS ORDERED: TERBUTALINE 1 MG/ML INJ SC ONE ×2 (23:30)
[2016-09-22] MEDS ORDERED: NIFEdipine 10 MG CAP PO ONE (01:30)
[2016-09-22] MEDS ORDERED: LACTATED RINGER'S 500 ML IV ONE (04:30)
--- NOTE | 2016-09-22 07:09 | QN ---
Documentation Comment Laborist DR Kincaid's pt 41 y.o. with an IUP at 35 weeks 6 days here for f/u on her MYNOR as it was low on 09/19 at 7.2 (was 14.9 2 days before). Pt has a h/o pregestational HTN and PTL. +FM. . No VB or leaking. She has been on Procardia for both the BP and PTL. Pt is being followed with twice weekly NST/BPP's here until she gets approval for NST clinic. PMHx: HTN. PSHx: C/S x 1. POBHx: C/S x 1. x 1. NKDA. 130/87 T= 98.5 NST:baseline 140 bpm with accels to 170 bpm. No decels. UC's were q 7 minutes and initially stronger when she first got here. MYNOR 12.2 cm. CX close/thick/-3. Pt was given IV hydration, terbutaline x 2 and Procardia 20 mg and the UC's spaced out substantially. A: IUP at 35w 6d. HTN. contractions. P: D/C IV and D/C home For NST/BPP 09/25. Continue Procardia. KAMERON GALLEGOS MD Sep 22, 2016 07:09
== END 2016-09-22 07:08 | disposition home or self-care (01) ==
LOC: OBT 19:58 → L-D 19:58 → OBT 09-22 07:08
PROVIDERS: ATTEND Obstetrics & Gynecology
DX: O10.013 Pre-existing essential hypertension complicating pregnancy, third trimester (principal); O60.03 Preterm labor without delivery, third trimester; O09.523 Supervision of elderly multigravida, third trimester; Z3A.35 35 weeks gestation of pregnancy
CPT/HCPCS: 36415; 59025; 76815; 96360; 96372; J3105; J7120; Z7500; Z7610; G0463

== ENCOUNTER 2016-09-25 20:36 | Outpatient (CLI) | payer MEDICAID ==
[~2016-09-25] VITALS: Ht 165.1 cm; Wt 97.6 kg
[2016-09-25 21:19] VITALS: Ht 165.1 cm; Wt 97.6 kg
[2016-09-25 21:46] VITALS: BP 133/79; PULSE 107; RESP 18
--- NOTE | 2016-09-25 22:45 | RADRPT ---
PROCEDURE: US OB. CLINICAL INDICATION: induced hypertension. Follow-up evaluation TECHNIQUE: Pelvic ultrasound performed for biophysical profile. COMPARISON: 09/21/2016 FINDINGS: Single intrauterine gestation present with heart rate at 131 beats per minute. Presentation is ceph alic. Placenta is anterior, grade II. Biophysical profile score is 8/8 (breathing=2, movement=2, t one =2, fluid volume=2). Amniotic fluid volume is within normal limits, with MYNOR = 10.9 cm. RPTAT:HJJR IMPRESSION: 1. Biophysical profile score 8/8. 2. Amniotic fluid index now measured at 10.9 cm, previously 12.2 cm on the study of 09/21/2016. Physician Liz Date Time Electronically viewed and signed by Alden Perez Physician on 09/25/2016 22:44 /
--- NOTE | 2016-09-26 00:03 | TRIAGE ---
OB Triage Datetime Report Generated by CPN: 09/26/2016 00:03 Datetime: 09/25/2016 23:02 Stage of : OB Triage Datetime: 09/25/2016 22:50 Stage of : OB Triage Datetime: 09/25/2016 22:10 Stage of : OB Triage Datetime: 09/25/2016 21:43 Stage of : OB Triage Labor Evaluation Frequency: 0 Monitor Mode: External Resting Tone [place]: Relaxed Heart Rate FHR Baseline Rate: 140 Monitor Mode: External US FHR Baseline Changes: No Baseline Change Variability: Moderate 6-25 bpm Accelerations: 15X15 Decelerations: None Category: Category I Comments: NST REACTIVE. MONITORING STOPPED. Datetime: 09/25/2016 21:30 Stage of : OB Triage Datetime: 09/25/2016 21:00 Assessment Type: Triage Maternal Assessment Level of Consciousness: Fully Conscious DTR's/Clonus: DTRs 2+; No Clonus Headache: Denies Blurred Vision: No Respiratory Effort: Unlabored; Regular Rhythm; Equal Expansion Breath Sounds, Left: Clear and Equal Breath Sounds, Right: Clear and Equal Nausea/Vomiting: Denies RUQ Epigastric Pain: Denies Facial Edema: None Fall Risk Assessment History of Falling: (0) No Secondary Diagnosis: (0) No Ambulatory Aid: (0) Bedrest/Nurse Assist IV Therapy: (0) No Gait: (0) Normal/Bedrest/Immobile Mental Status: (0) Oriented to Own Ability Fall Score: 0 Fall Risk Score Definition: No Risk: No action required Datetime: 09/25/2016 20:45 Time of Arrival: 09/25/2016 20:33 EGA: 36.1 Arrived By: Ambulatory Arrived From: Home Chief Complaint: twice weekly to OB triage w/ orders for NST/BPP d/t HTN and PTL Movement: Present Contractions: Denies/Absent Rupture of Membranes: Denies Vaginal Bleeding: None Vaginal Discharge: Denies Recent Sexual Intercouse: Denies Abdominal Trauma: Not Applicable Patient Complaints: Other Time Provider Notified: 09/25/2016 21:32 Provider Notified: EDI Initial Plan: VS, NST, BPP Datetime: 09/25/2016 20:40 Stage of : OB Triage Monitor Mode: External Contraction Comments: [place] APPLIED Monitor Mode: External US Comments: US APPLIED Datetime: 09/22/2016 06:00 Stage of : OB Triage Labor Evaluation Frequency: X 3 Monitor Mode: External Duration (sec)2399: 40-70 Quality: Mild Pattern: Normal: <= 5 Contractions in 10 Minutes Resting Tone [place]: Relaxed Heart Rate FHR Baseline Rate: 130 Monitor Mode: External US FHR Baseline Changes: No Baseline Change Variability: Moderate 6-25 bpm Accelerations: 15X15 Decelerations: Variable Category: Category I Datetime: 09/22/2016 05:00 Stage of : OB Triage Labor Evaluation Frequency: X 7 Monitor Mode: External Duration (sec)2399: 40-70 Quality: Mild Pattern: Normal: <= 5 Contractions in 10 Minutes Resting Tone [place]: Relaxed Heart Rate FHR Baseline Rate: 130 Monitor Mode: External US FHR Baseline Changes: No Baseline Change Variability: Moderate 6-25 bpm Accelerations: 15X15 Decelerations: Variable Datetime: 09/22/2016 04:00 Stage of : OB Triage Labor Evaluation Frequency: IRREG Monitor Mode: External Duration (sec)2399: 40-70 Quality: Mild Pattern: Normal: <= 5 Contractions in 10 Minutes Resting Tone [place]: Relaxed Heart Rate FHR Baseline Rate: 130 Monitor Mode: External US FHR Baseline Changes: No Baseline Change Variability: Moderate 6-25 bpm Accelerations: 15X15 Decelerations: Variable Category: Category I Datetime: 09/22/2016 03:58 Vaginal Exam Dilatation (cms): 0.0 Effacement (%): 30 Station: -3 Exam By: LISE BURNETTE Vaginal Bleeding: None Cervix, Consistency: Moderate Cervix, Position: Anterior Datetime: 09/22/2016 03:00 Stage of : OB Triage Labor Evaluation Frequency: IRREG Monitor Mode: External Duration (sec)2399: 40-70 Quality: Mild Pattern: Normal: <= 5 Contractions in 10 Minutes Resting Tone [place]: Relaxed Heart Rate FHR Baseline Rate: 130 Monitor Mode: External US FHR Baseline Changes: No Baseline Change Variability: Moderate 6-25 bpm Accelerations: 15X15 Decelerations: None Category: Category I Datetime: 09/22/2016 02:00 Stage of : OB Triage Maternal Assessment Level of Consciousness: Fully Conscious DTR's/Clonus: DTRs 2+; No Clonus Headache: Denies Breath Sounds, Left: Clear and Equal Breath Sounds, Right: Clear and Equal Nausea/Vomiting: Denies RUQ Epigastric Pain: Denies Labor Evaluation Frequency: X6 Monitor Mode: External Duration (sec)2399: 40-70 Quality: Mild Pattern: Normal: <= 5 Contractions in 10 Minutes Resting Tone [place]: Relaxed Heart Rate FHR Baseline Rate: 130 Monitor Mode: External US FHR Baseline Changes: No Baseline Change Variability: Moderate 6-25 bpm Accelerations: 15X15 Decelerations: None Category: Category I Datetime: 09/22/2016 01:07 Stage of : OB Triage Maternal Assessment Level of Consciousness: Fully Conscious DTR's/Clonus: DTRs 2+; No Clonus Headache: Denies Breath Sounds, Left: Clear and Equal Breath Sounds, Right: Clear and Equal Nausea/Vomiting: Denies RUQ Epigastric Pain: Denies Labor Evaluation Frequency: 2-5 Monitor Mode: External Duration (sec)2399: 40-70 Quality: Mild Pattern: Normal: <= 5 Contractions in 10 Minutes Resting Tone [place]: Relaxed Heart Rate FHR Baseline Rate: 130 Monitor Mode: External US FHR Baseline Changes: No Baseline Change Variability: Moderate 6-25 bpm Accelerations: 15X15 Decelerations: None Category: Category I Datetime: 09/22/2016 00:00 Stage of : OB Triage Maternal Assessment Level of Consciousness: Fully Conscious DTR's/Clonus: DTRs 2+; No Clonus Headache: Denies Breath Sounds, Left: Clear and Equal Breath Sounds, Right: Clear and Equal Nausea/Vomiting: Denies RUQ Epigastric Pain: Denies Labor Evaluation Frequency: 3-5 Monitor Mode: External Duration (sec)2399: 60-110 Quality: Mild Pattern: Normal: <= 5 Contractions in 10 Minutes Resting Tone [place]: Relaxed Heart Rate FHR Baseline Rate: 130 Monitor Mode: External US FHR Baseline Changes: No Baseline Change Variability: Moderate 6-25 bpm Accelerations: 15X15 Decelerations: None Datetime: 09/21/2016 23:04 Stage of : OB Triage Maternal Assessment Level of Consciousness: Fully Conscious DTR's/Clonus: DTRs 2+; No Clonus Headache: Denies Breath Sounds, Left: Clear and Equal Breath Sounds, Right: Clear and Equal Nausea/Vomiting: Denies RUQ Epigastric Pain: Denies Labor Evaluation Frequency: 3-5 Monitor Mode: External Duration (sec)2399: 60-110 Quality: Mild Pattern: Normal: <= 5 Contractions in 10 Minutes Resting Tone [place]: Relaxed Heart Rate FHR Baseline Rate: 130 Monitor Mode: External US FHR Baseline Changes: No Baseline Change Variability: Moderate 6-25 bpm Accelerations: 15X15 Decelerations: None Datetime: 09/21/2016 22:00 Stage of : OB Triage Maternal Assessment Level of Consciousness: Fully Conscious DTR's/Clonus: DTRs 2+; No Clonus Headache: Denies Breath Sounds, Left: Clear and Equal Breath Sounds, Right: Clear and Equal Nausea/Vomiting: Denies RUQ Epigastric Pain: Denies Labor Evaluation Frequency: X3 Monitor Mode: External Duration (sec)2399: 60-90 Quality: Mild Pattern: Normal: <= 5 Contractions in 10 Minutes Resting Tone [place]: Relaxed Heart Rate FHR Baseline Rate: 130 Monitor Mode: External US FHR Baseline Changes: No Baseline Change Variability: Moderate 6-25 bpm Accelerations: 15X15 Decelerations: None Category: Category I Datetime: 09/21/2016 21:00 Stage of : OB Triage Maternal Assessment Level of Consciousness: Fully Conscious DTR's/Clonus: DTRs 2+; No Clonus Headache: Denies Breath Sounds, Left: Clear and Equal Breath Sounds, Right: Clear and Equal Nausea/Vomiting: Denies RUQ Epigastric Pain: Denies Labor Evaluation Frequency: X 5 Monitor Mode: External Duration (sec)2399: 50-120 Quality: Mild Pattern: Normal: <= 5 Contractions in 10 Minutes Resting Tone [place]: Relaxed Heart Rate FHR Baseline Rate: 135 Monitor Mode: External US FHR Baseline Changes: No Baseline Change Variability: Moderate 6-25 bpm Accelerations: 15X15 Decelerations: None Category: Category I Datetime: 09/21/2016 20:22 Stage of : OB Triage Assessment Type: Triage Maternal Assessment Level of Consciousness: Fully Conscious DTR's/Clonus: DTRs 2+; No Clonus Headache: Denies Blurred Vision: No Respiratory Effort: Unlabored; Regular Rhythm; Equal Expansion Breath Sounds, Left: Clear and Equal Breath Sounds, Right: Clear and Equal Nausea/Vomiting: Denies RUQ Epigastric Pain: Denies Lower Extremities Edema: None Degree: None Upper Extremities Edema: None Degree: None Facial Edema: None Temperature Route: Oral Fall Risk Assessment History of Falling: (0) No Secondary Diagnosis: (0) No Ambulatory Aid: (0) Bedrest/Nurse Assist IV Therapy: (0) No Gait: (0) Normal/Bedrest/Immobile Mental Status: (0) Oriented to Own Ability Fall Score: 0 Fall Risk Score Definition: No Risk: No action required Labor Evaluation Frequency: X 1 Monitor Mode: External Duration (sec)2399: 80 Quality: Mild (Annotations: DENIES FEELING CONTRACTIONS) Pattern: Normal: <= 5 Contractions in 10 Minutes Resting Tone [place]: Relaxed Heart Rate FHR Baseline Rate: 140 Monitor Mode: External US FHR Baseline Changes: No Baseline Change Variability: Moderate 6-25 bpm Accelerations: 15X15 Decelerations: None Category: Category I Datetime: 09/21/2016 20:00 Time of Arrival: 09/21/2016 19:56 EGA: 35.4 Arrived By: Ambulatory Arrived From: Home Chief Complaint: PT SEEN IN [facility] 09/19/2016 FOR NST AND BPP. PT WAS INSTRUCTED TO RETURN TODAY FO R REPEAT MYNOR DUE TO LOW MYNOR ON 09/19 Movement: Present Contractions: Denies/Absent Rupture of Membranes: Denies Vaginal Bleeding: None Vaginal Discharge: Denies Recent Sexual Intercouse: Denies Abdominal Trauma: Not Applicable Patient Complaints: None Additional Patient Complaints: NONE Initial Plan: CALL TO , ORDER FOR NST WITH MYNOR Datetime: 09/19/2016 20:00 Time of Arrival: 09/19/2016 19:58 EGA: 35.2 Datetime: 09/16/2016 21:19 EGA: 34.6 Datetime: 09/04/2016 08:30 Fall Score: 0 Fall Risk Score Definition: No Risk: No action required Datetime: 09/03/2016 20:45 Fall Score: 20 Fall Risk Score Definition: No Risk: No action required Datetime: 09/03/2016 07:41 Fall Score: 0 Fall Risk Score Definition: No Risk: No action required Datetime: 09/02/2016 20:07 Fall Score: 20 Fall Risk Score Definition: No Risk: No action required Datetime: 09/02/2016 07:58 Fall Score: 20 Fall Risk Score Definition: No Risk: No action required Datetime: 09/01/2016 21:50 Fall Score: 0 Fall Risk Score Definition: No Risk: No action required Datetime: 09/01/2016 21:39 EGA: 32.5 Datetime: 09/01/2016 19:38 EGA: 32.5 Fall Score: 0 Fall Risk Score Definition: No Risk: No action required
== END 2016-09-25 23:06 | disposition home or self-care (01) ==
LOC: OBT 20:36 → L-D 20:38 → OBT 23:06
PROVIDERS: ATTEND Obstetrics & Gynecology
DX: O26.893 Other specified pregnancy related conditions, third trimester (principal); R10.9 Unspecified abdominal pain; O09.523 Supervision of elderly multigravida, third trimester; Z3A.36 36 weeks gestation of pregnancy
CPT/HCPCS: 76818; Z7500; G0463

== ENCOUNTER 2016-09-29 21:29 | Outpatient (CLI) | payer MEDICAID ==
--- NOTE | 2016-09-29 22:18 | RADRPT ---
PROCEDURE: US OB biophysical profile. CLINICAL INDICATION: decreased movements, contractions TECHNIQUE: Multiple sonographic images of the pelvis were obtained. The images were reviewed on a PACS workstation. COMPARISON: 09/25/2016 FINDINGS: There is a single viable intrauterine gestation. Cardiac activity is present with 139 beats per min samish. There is a vertex presentation. The placenta is anterior. There is no evidence of placental abruption. There is a slightly decreased amount of amniotic fluid with an MYNOR = 7.7 cm. Biophysical profile: movement 2/2 tone 2/2. breathing 2/2 MYNOR 2/2 Total 11/25 RPTAT: AA . IMPRESSION: Normal biophysical profile. Mild oligohydramnios. . .Dwayne Massey MD, Date Time Electronically viewed and signed by .Dwayne Massey MD, on 09/29/2016 22:17 .S/
--- NOTE | 2016-09-29 22:52 | PN ---
Date/Time of Note Date/Time of Note DATE: 09/29/16 TIME: 22:45 OB Subjective Subjective Subjective 41 Year-old with SIUP at 36 5/7 presents for NST and BPP for GHTN. She is currently on procardia 20 mg daily. She has been receiving her care with Dr. Kincaid. She states good movement. She denies nausea, vomiting, shortness of breath, chest pain, and abdominal pain between contractions, headache, visual changes, vaginal bleeding or LOF. OB Objective Objective Objective General: Patient appears well, alert and oriented, NAD, appropriate mood and affect ABD: gravid, soft, non-tender. Back: No CVA tenderness (B/L) LE: No clubbing, cyanosis, edema, thigh or calf tenderness bilaterally FHT: 135 bpm , moderate variability with acceleration, no deceleration-category I Contractions: None OB Assessment/Plan Other plan: 41 Year-old with SIUP at 36 5/7 presents for NST and BPP for GHTN - FHR: No sign of metabolic acidosis- Category I - Continuous EFM, toco - Contractions: None. - Reactive NST. BPP: 10/10 - Symptoms and sign of labor, preeclampsia, kick count discussed with patient, she voiced understanding. All of her questions answered. - Patient was discharged home in stable condition with the appropriate discharge instructions provided. I would like patient to have close follow-up with her primary physician or outpatient clinic in 1-2 days or return to the ER for worsening symptoms or any other urgent concerns. ELLE STALLWORTH Sep 29, 2016 22:52
== END 2016-09-30 | disposition home or self-care (01) ==
LOC: OBT 21:29 → L-D 21:30 → OBT 09-30
PROVIDERS: ATTEND Obstetrics & Gynecology
DX: O13.3 Gestational [pregnancy-induced] hypertension without significant proteinuria, third trimester (principal); Z3A.39 39 weeks gestation of pregnancy
CPT/HCPCS: 76818; Z7500; G0463

== ENCOUNTER 2016-10-03 21:24 | Outpatient (CLI) | payer MEDICAID ==
[~2016-10-03] VITALS: Ht 165.1 cm; Wt 98.7 kg
--- NOTE | 2016-10-03 22:34 | RADRPT ---
PROCEDURE: OB ultrasound for biophysical profile CLINICAL INDICATION: Hypertension. TECHNIQUE: Multiple sonographic images of the gravid uterus performed. The images were reviewed on a PACS workstation. COMPARISON: 09/29/2016 FINDINGS: A single live intrauterine is identified with heart rate of 124 bpm. Fet us is in a anterior presentation. Placenta is located posteriorly. Biophysical profile: breathing movement = 2/2 tone = 2/2 motion = 2/2 MYNOR = 2/2 MYNOR = 14.6 cm. IMPRESSION: 1. Single live intrauterine gestation. 2. Biophysical profile = 8/8. 3. MYNOR = 14.6 cm. RPTAT: HMVK .Dre Oliver MD, Date Time Electronically viewed and signed by .Dre Oliver MD, MD on 10/03/2016 22:34 .K/
[2016-10-03 23:15] VITALS: BP 138/79; PULSE 95; RESP 18; Ht 165.1 cm; Wt 98.7 kg
--- NOTE | 2016-10-03 23:25 | QN ---
Documentation Comment iup 37 weeks CHTN-stable pt asymptomatic vss exam wnl nst reactive a.p iup 37 weeks CHTN stable dc home SUZIE SARMIENTO MD Oct 03, 2016 23:25
[2016-10-03] MEDS ORDERED: LABE100T39 PO (23:26)
--- NOTE | 2016-10-04 01:30 | TRIAGE ---
OB Triage Datetime Report Generated by CPN: 10/04/2016 01:29 Datetime: 10/03/2016 21:45 Assessment Type: Triage Time of Arrival: 10/03/2016 21:22 EGA: 37.2 Arrived By: Ambulatory Arrived From: Home Chief Complaint: None Movement: Present Contractions: Denies/Absent Rupture of Membranes: Denies Vaginal Discharge: Denies Recent Sexual Intercouse: Denies Abdominal Trauma: Not Applicable Patient Complaints: Other Additional Patient Complaints: Pt here for NST/BPP Time Provider Notified: 10/03/2016 23:08 Provider Notified: Dr Kincaid Maternal Assessment Level of Consciousness: Fully Conscious DTR's/Clonus: DTRs 2+; No Clonus Headache: Denies Blurred Vision: No Respiratory Effort: Unlabored; Regular Rhythm; Equal Expansion Breath Sounds, Left: Clear and Equal Breath Sounds, Right: Clear and Equal Nausea/Vomiting: Denies RUQ Epigastric Pain: Denies Lower Extremities Edema: None Degree: None Upper Extremities Edema: None Degree: None Facial Edema: None Fall Risk Assessment History of Falling: (0) No Secondary Diagnosis: (0) No Ambulatory Aid: (0) Bedrest/Nurse Assist IV Therapy: (0) No Gait: (0) Normal/Bedrest/Immobile Mental Status: (0) Oriented to Own Ability Fall Score: 0 Fall Risk Score Definition: No Risk: No action required Datetime: 09/29/2016 23:00 Stage of : OB Triage Datetime: 09/29/2016 21:40 Assessment Type: Triage Maternal Assessment Level of Consciousness: Fully Conscious DTR's/Clonus: DTRs 2+; No Clonus Headache: Denies Blurred Vision: No Respiratory Effort: Unlabored; Regular Rhythm; Equal Expansion Breath Sounds, Left: Clear and Equal Breath Sounds, Right: Clear and Equal Nausea/Vomiting: Denies RUQ Epigastric Pain: Denies Lower Extremities Edema: Bilateral Lower Extremities Degree: 1+ Upper Extremities Edema: None Facial Edema: None Fall Risk Assessment History of Falling: (0) No Secondary Diagnosis: (0) No Ambulatory Aid: (0) Bedrest/Nurse Assist IV Therapy: (0) No Gait: (0) Normal/Bedrest/Immobile Mental Status: (0) Oriented to Own Ability Fall Score: 0 Fall Risk Score Definition: No Risk: No action required Datetime: 09/29/2016 21:39 Time of Arrival: 09/29/2016 21:26 EGA: 36.5 Arrived By: Ambulatory Arrived From: Home Chief Complaint: BIWEEKLY BPP FOR ELEVATED B/P Movement: Present Contractions: Denies/Absent Rupture of Membranes: Denies Vaginal Bleeding: None Vaginal Discharge: Denies Recent Sexual Intercouse: Denies Abdominal Trauma: Not Applicable Patient Complaints: None Time Provider Notified: 09/29/2016 22:13 Provider Notified: HADADIAN Initial Plan: EFM,BPP,NST, CALL OB Datetime: 09/29/2016 21:37 Temperature Route: Oral Datetime: 09/29/2016 21:33 Stage of : OB Triage Datetime: 09/25/2016 21:00 Fall Score: 0 Fall Risk Score Definition: No Risk: No action required Datetime: 09/25/2016 20:45 EGA: 36.1 Datetime: 09/21/2016 20:22 Fall Score: 0 Fall Risk Score Definition: No Risk: No action required Datetime: 09/21/2016 20:00 EGA: 35.4 Datetime: 09/19/2016 20:00 EGA: 35.2 Datetime: 09/16/2016 21:19 EGA: 34.6 Datetime: 09/04/2016 08:30 Fall Score: 0 Fall Risk Score Definition: No Risk: No action required Datetime: 09/03/2016 20:45 Fall Score: 20 Fall Risk Score Definition: No Risk: No action required Datetime: 09/03/2016 07:41 Fall Score: 0 Fall Risk Score Definition: No Risk: No action required Datetime: 09/02/2016 20:07 Fall Score: 20 Fall Risk Score Definition: No Risk: No action required Datetime: 09/02/2016 07:58 Fall Score: 20 Fall Risk Score Definition: No Risk: No action required Datetime: 09/01/2016 21:50 Fall Score: 0 Fall Risk Score Definition: No Risk: No action required Datetime: 09/01/2016 21:39 EGA: 32.5 Datetime: 09/01/2016 19:38 EGA: 32.5 Fall Score: 0 Fall Risk Score Definition: No Risk: No action required
== END 2016-10-03 23:40 | disposition home or self-care (01) ==
LOC: L-D 21:24 → OBT 21:24
PROVIDERS: ATTEND Obstetrics & Gynecology
DX: O10.013 Pre-existing essential hypertension complicating pregnancy, third trimester (principal); O09.523 Supervision of elderly multigravida, third trimester; Z3A.37 37 weeks gestation of pregnancy
CPT/HCPCS: 76818; Z7500; G0463

== ENCOUNTER 2016-10-05 14:19 | Outpatient (CLI) | payer MEDICAID ==
[~2016-10-05] VITALS: Ht 165.1 cm; Wt 98.2 kg
[~2016-10-05 14:19] MED LIST changes: +LABE100T39 PO
[2016-10-05 15:09] VITALS: Ht 165.1 cm; Wt 98.2 kg
[2016-10-05 15:10] VITALS: BP 147/81; PULSE 99; RESP 20
[2016-10-05 15:13] LABS: ADD SCAN DIFF NO
[2016-10-05 15:14] LABS: ADD UMIC YES; UR BILIRUBIN (Dip) NEGATIVE (NEGATIVE); UR BLOOD (Dip) 2+ (NEGATIVE); UR CLARITY CLEAR (CLEAR); UR COLOR DK. YELLOW (YELLOW); UR GLUCOSE (Dip) NEGATIVE (NEGATIVE); UR KETONES (Dip) NEGATIVE (NEGATIVE); UR LEUKOCYTE ESTERASE (Dip) TRACE (NEGATIVE); UR NITRITE (Dip) NEGATIVE (NEGATIVE); UR TOTAL PROTEIN (Dip) NEGATIVE (NEGATIVE); UR UROBILINOGEN (Dip) 0.2 E.U./dL (0.1-1.0)
--- NOTE | 2016-10-05 15:14 | RADRPT ---
PROCEDURE: US biophysical profile. CLINICAL INDICATION: Decreased motion. Contractions. TECHNIQUE: Multiple sonographic images of the uterus were obtained. The images were revi ewed on a PACS workstation. COMPARISON: 10/03/2016. FINDINGS: There is a single live intrauterine gestation. heart rate is 137 beats per minute. The position is cephalic. The placenta is anterior grade II with no abruption or previa. The MYNOR is 11.7 cm. (Normal = 5-20 cm.) Breathing Movement: 2 Gross Body Movement: 2 Tone: 2 Qualitative Amniotic Fluid Volume: 2 TOTAL: 8 IMPRESSION: 1. The biophysical score is 8/8. RPTAT: QQ .Camron Sharp MD, MD Date Time Electronically viewed and signed by .Camron Sharp MD, on 10/05/2016 15:14 .R/
[2016-10-05 15:15] LABS: BASOPHILS % 0.3 % (0.0-2.0); EOSINOPHILS % 0.5 % (0.0-7.0); HEMOGLOBIN 9.9 g/dl (12.0-16.0); LYMPHOCYTES # 1.5 10^3/ul (0.8-2.9); LYMPHOCYTES % 20.2 % (15.0-51.0); MEAN CORPUSCULAR HEMOGLOBIN 28.1 pg (29.0-33.0); MEAN CORPUSCULAR VOLUME 85.2 fl (82.0-101.0); MEAN PLATELET VOLUME 9.6 fl (7.4-10.4); MONOCYTE # 0.5 10^3/ul (0.3-0.9); MONOCYTES % 6.8 % (0.0-11.0); NEUTROPHIL # 5.3 10^3/ul (1.6-7.5); NEUTROPHILS % 71.8 % (39.0-77.0); PLATELET COUNT 202 10^3/UL (140-415); RED BLOOD COUNT 3.52 10^6/ul (4.20-5.40); RED CELL DISTRIBUTION WIDTH 14.5 % (11.5-14.5); WHITE BLOOD COUNT 7.4 10^3/ul (4.8-10.8)
--- NOTE | 2016-10-05 15:18 | RADRPT ---
PROCEDURE: US OB. CLINICAL INDICATION: Contractions TECHNIQUE: Multiple sonographic images of the pelvis were obtained. The images were reviewed on a PACS workstation. COMPARISON: 10/03/2016 FINDINGS: The cervix is closed. There is a single viable intrauterine gestation. Cardiac activity is present with 144 beats per min [place]. There is a vertex presentation. Measurements were made in order to determine age. The results are as follows: BPD =9.11 cm HC =32.60 AC =38.79 cm FL =7.57 cm. Estimated gestational age of approximately 37 weeks 5 days The estimated date of delivery is 10/21/2016. The EFW = 4111 grams plus or minus 616 g . The placenta is anterior and grade 2. There is no evidence for an abruption or placenta previa. There are no adnexal masses.. IMPRESSION: Single viable intrauterine gestation of approximately 37 weeks 5 days. The estimated date of delive ry is 10/21/2016 . RPTAT: HSM .Serafin Bai MD, MD Date Time Electronically viewed and signed by .Serafin Bai MD, on 10/05/2016 15:18 .M/
[2016-10-05 15:22] LABS: UR BACTERIA MANY
[2016-10-05 15:29] LABS: INR 0.94; PROTIME 12.6 Sec (12.2-14.2)
[2016-10-05 15:30] LABS: PARTIAL THROMBOPLASTIN TIME 22.8 Sec (25.0-35.0)
[2016-10-05 15:36] LABS: ALBUMIN 3.6 g/dl (3.3-4.9); ALBUMIN/GLOBULIN RATIO 1.28; BILIRUBIN,INDIRECT 0.2 mg/dl (0-1.1); BILIRUBIN,TOTAL 0.2 mg/dl (0.2-1.3); CALCIUM 8.9 mg/dl (8.4-10.2); CREATININE 0.71 mg/dl (0.44-1.00); POTASSIUM 3.9 mmol/L (3.5-5.1); TOTAL PROTEIN 6.4 g/dl (6.1-8.1); URIC ACID 5.9 mg/dl (3.1-7.9)
--- NOTE | 2016-10-05 18:40 | PN ---
Triage Information Date/Time 10/05/2016 C/O vaginal bleeding started AM of the visit denies uterine contractions Weeks of Gestation 37.4 : 3 Para: 2 Diabetes: none Hypertention: essential Additional information on labetalol has no C/O headache, blurred vision or epigastric pain Objective Vital Signs Date Time Temp Pulse Resp B/P Pulse Ox O2 Delivery O2 Flow Rate FiO2 10/05/16 15:10 98.2 99 20 147/81 98 Room Air Heart Rate: 140's Heart Rate Comments FHTs reactive BPP 8/8 Contractions: 6-10 Minutes Apart Exam %50 2cm -3 station Results/Medications Result Diagram: 10/05/16 1500 10/05/16 1500 Results 24 hrs Laboratory Tests Test 10/05/16 15:00 White Blood Count 7.4 # Red Blood Count 3.52 L Hemoglobin 9.9 L Hematocrit 30.0 L Mean Corpuscular Volume 85.2 Mean Corpuscular Hemoglobin 28.1 L Mean Corpuscular Hemoglobin Concent 33.0 Red Cell Distribution Width 14.5 Platelet Count 202 Mean Platelet Volume 9.6 Neutrophils % 71.8 Lymphocytes % 20.2 Monocytes % 6.8 Eosinophils % 0.5 Basophils % 0.3 Nucleated Red Blood Cells % 0.0 Neutrophils # 5.3 Lymphocytes # 1.5 Monocytes # 0.5 Eosinophils # 0.0 Basophils # 0.0 Nucleated Red Blood Cells # 0.0 Prothrombin Time 12.6 Prothrombin Time Ratio 1.0 INR International Normalized Ratio 0.94 Activated Partial Thromboplast Time 22.8 L Fibrinogen 550.0 H Urine Color DK. YELLOW Urine Clarity CLEAR Urine pH 7.0 Urine Specific [place] 1.025 Urine Ketones NEGATIVE Urine Nitrite NEGATIVE Urine Bilirubin NEGATIVE Urine Urobilinogen 0.2 E.U./dL Urine Leukocyte Esterase TRACE H Urine Microscopic RBC 2-5 Urine Microscopic WBC 2-5 Urine Epithelial Cells MANY Urine Bacteria MANY Urine Hemoglobin 2+ H Urine Glucose NEGATIVE Urine Total Protein NEGATIVE Sodium Level 134 L Potassium Level 3.9 Chloride Level 108 Carbon Dioxide Level 19 L Anion Gap 11 Blood Urea Nitrogen 10 Creatinine 0.71 Glucose Level 137 Uric Acid 5.9 Calcium Level 8.9 Total Bilirubin 0.2 Direct Bilirubin 0.00 Indirect Bilirubin 0.2 Aspartate Amino Transf (AST/SGOT) 24 Alanine Aminotransferase (ALT/SGPT) 45 Alkaline Phosphatase 193 H Total Protein 6.4 Albumin 3.6 Globulin 2.80 Albumin/Globulin Ratio 1.28 Medications on labetalol Imaging Results BPP 11/25 EFW: 4000 gm had of >9 lbs baby before Assessment/Plan 37.4 weeks gestation previous C/S X 1 S/P strongly desires regardless of warning against (possible fetomaternal damage including but not limmited to serious brain injury to fetus and or even ) Does not desire to stay in hospital at all will follow in 24-48 hour if patient allows SOFIA TORRES MD Oct 05, 2016 18:40
== END 2016-10-05 18:58 | disposition home or self-care (01) ==
LOC: OBT 14:19 → L-D 14:20 → UNDOADMIN 14:50 → L-D 14:50 → OBT 14:50
PROVIDERS: ATTEND Obstetrics & Gynecology
DX: O46.93 Antepartum hemorrhage, unspecified, third trimester (principal); O09.523 Supervision of elderly multigravida, third trimester; O36.8130 Decreased fetal movements, third trimester, not applicable or unspecified; Z3A.37 37 weeks gestation of pregnancy
CPT/HCPCS: 76815; 76818; 80053; 81001; 84560; 85025; 85384; 85610; 85730

== ENCOUNTER 2016-10-06 19:55 | Inpatient (IN) | payer MEDICAID ==
[~2016-10-06 19:55] MED LIST changes: -PRO20 PO
--- NOTE | 2016-10-06 20:58 | PN ---
Triage Information Date/Time Oct 06, 2016 at 19:55 Weeks of Gestation 40 : 3 Para: 2 Diabetes: none Hypertention: essential (on labetalol) Additional information patient was originally admitted for induction however cervix does not appear inducable on pelvic exam today; Cs:590 2 cn -3 Objective Heart Rate: 140's Contractions: >10 Minutes Apart Results/Medications Medications labetalol Imaging Results BPP 11/25 Assessment/Plan previous C/S X 1 at 37.5 weeks with essential hypertension will repeat BPP in 3 days EFW: 4100 measured yesterday will try to convince patient have a repeat C/S SOFIA TORRES MD Oct 06, 2016 20:57
--- NOTE | 2016-10-06 21:49 | RADRPT ---
PROCEDURE: Biophysical profile. CLINICAL INDICATION: Pelvic pain. TECHNIQUE: Multiple sonographic images of the pelvis were obtained with transabdominal technique. COMPARISON: 10/05/2016. FINDINGS: There is a single living intrauterine gestation with the fetus in a vertex position. The placenta i s anterior in location, grade II. heart tones of 154 beats per minute are identified. There i s normal amniotic fluid volume with an MYNOR of 14.5 cm. breathing movements = 2 Gross body movements = 2 tone = 2 Qualitative AFV = 2 IMPRESSION: Biophysical profile 8 out of 8. .Shoaib Johnson MD, Date Time Electronically viewed and signed by .Shoaib Johnson MD, on 10/06/2016 21:48 .T/
--- NOTE | 2016-10-07 09:01 | TRIAGE ---
OB Triage Datetime Report Generated by CPN: 10/07/2016 09:00 Datetime: 10/06/2016 22:40 Stage of : Labor Datetime: 10/06/2016 22:00 Labor Evaluation Frequency: X4 Monitor Mode: External Duration (sec)2399: 60-70 Pattern: Normal: <= 5 Contractions in 10 Minutes Heart Rate FHR Baseline Rate: 145 Monitor Mode: External US FHR Baseline Changes: No Baseline Change Variability: Moderate 6-25 bpm Accelerations: 15X15 Category: Category I Datetime: 10/06/2016 21:00 Labor Evaluation Frequency: x3 Monitor Mode: External Duration (sec)2399: 60-70 Pattern: Normal: <= 5 Contractions in 10 Minutes Heart Rate FHR Baseline Rate: 145 Monitor Mode: External US FHR Baseline Changes: No Baseline Change Variability: Moderate 6-25 bpm Accelerations: 15X15 Datetime: 10/06/2016 20:39 Vaginal Exam Dilatation (cms): 1.0 Effacement (%): 0 Station: -4 Exam By: dr. nick Cervix, Consistency: Firm Cervix, Position: Posterior Datetime: 10/06/2016 20:22 Time of Arrival: 10/06/2016 20:22 (Annotations: Data stored by [facility] on behalf of user) EGA: 37.5 Datetime: 10/05/2016 18:23 Stage of : Labor Vaginal Exam Dilatation (cms): 2.0 Effacement (%): 50 Station: -3 Exam By: dr. nick Presentation 'A': Cephalic Datetime: 10/05/2016 18:08 Labor Evaluation Frequency: x2 Monitor Mode: External Duration (sec)2399: 60-120 Quality: Moderate Pattern: Normal: <= 5 Contractions in 10 Minutes Resting Tone [place]: Relaxed Contraction Comments: pt denies feeling uc's Heart Rate FHR Baseline Rate: 135 Monitor Mode: External US Variability: Moderate 6-25 bpm Accelerations: 15X15 Decelerations: None Category: Category I Datetime: 10/05/2016 16:45 Pain Assessment Pain Scale: 0 Pain Presence: None/Denies Pain Type: N/A Pain Goal: 0 Pain Assessment Comments: PT DENIES PAIN Datetime: 10/05/2016 16:44 Vaginal Exam Dilatation (cms): 3.0 Effacement (%): 50 Station: -3 Exam By: OGBODU Cervix, Consistency: Firm Cervix, Position: Midposition Datetime: 10/05/2016 15:16 Labor Evaluation Frequency: X3 Monitor Mode: External Duration (sec)2399: 50-100 Quality: Moderate Pattern: Normal: <= 5 Contractions in 10 Minutes Resting Tone [place]: Relaxed Heart Rate FHR Baseline Rate: 145 Monitor Mode: External US Variability: Moderate 6-25 bpm Accelerations: 15X15 Decelerations: None Category: Category I Comments: NST REACTIVE FOR GESTATIONAL AGE Datetime: 10/05/2016 14:34 Vaginal Exam Dilatation (cms): 3.0 Effacement (%): 50 Station: -3 Exam By: KOBE BURNETTE Vaginal Bleeding: Normal Show Cervix, Consistency: Firm Presentation 'A': Cephalic Datetime: 10/05/2016 14:28 Stage of : OB Triage Maternal Assessment Level of Consciousness: Fully Conscious DTR's/Clonus: DTRs 2+; No Clonus Headache: Denies Blurred Vision: No Respiratory Effort: Unlabored; Regular Rhythm; Equal Expansion Breath Sounds, Left: Clear and Equal Breath Sounds, Right: Clear and Equal Nausea/Vomiting: Denies RUQ Epigastric Pain: Denies Lower Extremities Edema: Bilateral Lower Extremities Degree: 1+ Upper Extremities Edema: None Degree: None Facial Edema: None Temperature Route: Axillary Fall Risk Assessment History of Falling: (0) No Secondary Diagnosis: (0) No Ambulatory Aid: (0) Bedrest/Nurse Assist IV Therapy: (0) No Gait: (0) Normal/Bedrest/Immobile Mental Status: (0) Oriented to Own Ability Fall Score: 0 Fall Risk Score Definition: No Risk: No action required Datetime: 10/05/2016 14:27 Time of Arrival: 10/05/2016 14:20 EGA: 37.4 Arrived By: Ambulatory Arrived From: Home Chief Complaint: SPOTTING/ CONTRACTION Movement: Present Contractions: Irregular Contractions: Q5M Rupture of Membranes: Denies Vaginal Bleeding: Normal Show Vaginal Discharge: Denies Recent Sexual Intercouse: Denies Abdominal Trauma: Not Applicable Patient Complaints: Contractions; Cramping; Back Pain Additional Patient Complaints: PT STATES SHE DOES NOT REMEMBER WHEN HER CONTRACTIONS STARTED. PT S TATES SHE STARTED SPOTTING WITH MUCOUS LAST NIGHT AND LITTLE MORE THIS MORNING Time Provider Notified: 10/05/2016 14:55 Provider Notified: DR. NICK Initial Plan: ZUNILDA CHAVEZ MD, ORDERS RECIVED TO RECHECK IN 2 HOURS Datetime: 10/03/2016 23:15 Stage of : OB Triage Datetime: 10/03/2016 23:08 Stage of : OB Triage Datetime: 10/03/2016 22:28 Labor Evaluation Frequency: X4 Monitor Mode: External Duration (sec)2399: 70-80 Quality: Mild Pattern: Normal: <= 5 Contractions in 10 Minutes Resting Tone [place]: Relaxed Heart Rate FHR Baseline Rate: 130 Monitor Mode: External US FHR Baseline Changes: No Baseline Change Variability: Moderate 6-25 bpm Accelerations: 15X15 Decelerations: None Category: Category I Datetime: 10/03/2016 21:45 EGA: 37.2 Fall Score: 0 Fall Risk Score Definition: No Risk: No action required Datetime: 09/29/2016 21:40 Fall Score: 0 Fall Risk Score Definition: No Risk: No action required Datetime: 09/29/2016 21:39 EGA: 36.5 Datetime: 09/25/2016 21:00 Fall Score: 0 Fall Risk Score Definition: No Risk: No action required Datetime: 09/25/2016 20:45 EGA: 36.1 Datetime: 09/21/2016 20:22 Fall Score: 0 Fall Risk Score Definition: No Risk: No action required Datetime: 09/21/2016 20:00 EGA: 35.4 Datetime: 09/19/2016 20:00 EGA: 35.2 Datetime: 09/16/2016 21:19 EGA: 34.6 Datetime: 09/04/2016 08:30 Fall Score: 0 Fall Risk Score Definition: No Risk: No action required Datetime: 09/03/2016 20:45 Fall Score: 20 Fall Risk Score Definition: No Risk: No action required Datetime: 09/03/2016 07:41 Fall Score: 0 Fall Risk Score Definition: No Risk: No action required Datetime: 09/02/2016 20:07 Fall Score: 20 Fall Risk Score Definition: No Risk: No action required Datetime: 09/02/2016 07:58 Fall Score: 20 Fall Risk Score Definition: No Risk: No action required Datetime: 09/01/2016 21:50 Fall Score: 0 Fall Risk Score Definition: No Risk: No action required Datetime: 09/01/2016 21:39 EGA: 32.5 Datetime: 09/01/2016 19:38 EGA: 32.5 Fall Score: 0 Fall Risk Score Definition: No Risk: No action required
== END 2016-10-06 22:40 | disposition home or self-care (01) | DRG 781 ==
LOC: L-D 19:55
PROVIDERS: ADMIT Obstetrics & Gynecology; ATTEND Obstetrics & Gynecology
DX: O16.3 Unspecified maternal hypertension, third trimester (principal); O09.523 Supervision of elderly multigravida, third trimester; Z3A.40 40 weeks gestation of pregnancy
CPT/HCPCS: 76818

== ENCOUNTER 2016-10-09 05:19 | Inpatient (IN) | payer MEDICAID ==
[~2016-10-09] VITALS: Ht 165.1 cm; Wt 97.4 kg
[2016-10-09 05:23] VITALS: Ht 165.1 cm; Wt 97.4 kg
[2016-10-09] MEDS ORDERED: BUTORPHANOL 2 MG INJ IV PRN (06:00)
[2016-10-09] MEDS ORDERED: CARBOPROST 250 MCG INJ IM PRN ×2 (06:00→21:00)
[2016-10-09] MEDS ORDERED: OXYTOCIN 30 UNITS/LR 500 ML IV SCH ×2 (06:00)
[2016-10-09] MEDS ORDERED: OXYTOCIN 30 UNITS/LR 500 ML IV PRN ×2 (06:00→21:00)
[2016-10-09] MEDS ORDERED: AMPICILLIN 2 GM/NS (PMX) 100 ML IV ONE (06:00)
[2016-10-09] MEDS ORDERED: METHYLERGONOVINE 0.2 MG INJ IM PRN ×2 (06:00→21:00)
[2016-10-09] MEDS ORDERED: MISOPROSTOL 200 MCG TAB PR PRN ×2 (06:00→21:00)
[2016-10-09] MEDS ORDERED: LIDOCAINE 1% (MPF) 30 ML INJ INJ PRN (06:00)
[2016-10-09] MEDS: LACTATED RINGER'S 1,000 ML IV PRN ×2 (06:11→07:55)
[2016-10-09 06:16] VITALS: BP 135/85; PULSE 107; RESP 20
[2016-10-09 06:43] LABS: ADD SCAN DIFF NO
[2016-10-09 06:47] LABS: BASOPHILS % 0.3 % (0.0-2.0); EOSINOPHILS # 0.1 10^3/ul (0.0-0.5); EOSINOPHILS % 0.6 % (0.0-7.0); HEMATOCRIT 32.3 % (37.0-47.0); LYMPHOCYTES # 1.7 10^3/ul (0.8-2.9); LYMPHOCYTES % 13.6 % (15.0-51.0); MEAN CORPUSCULAR HEMOGLOBIN 28.9 pg (29.0-33.0); MEAN CORPUSCULAR HGB CONC 34.1 g/dl (32.0-37.0); MEAN CORPUSCULAR VOLUME 84.8 fl (82.0-101.0); MEAN PLATELET VOLUME 10.2 fl (7.4-10.4); MONOCYTE # 0.9 10^3/ul (0.3-0.9); MONOCYTES % 7.2 % (0.0-11.0); NEUTROPHIL # 9.4 10^3/ul (1.6-7.5); NEUTROPHILS % 77.6 % (39.0-77.0); PLATELET COUNT 230 10^3/UL (140-415); RED BLOOD COUNT 3.81 10^6/ul (4.20-5.40); RED CELL DISTRIBUTION WIDTH 14.6 % (11.5-14.5); WHITE BLOOD COUNT 12.1 10^3/ul (4.8-10.8)
[2016-10-09 07:00] LABS: ADD UMIC YES; UR ASCORBIC ACID NEGATIVE (NEGATIVE); UR BACTERIA FEW /HPF (NONE SEEN); UR BILIRUBIN (Dip) NEGATIVE (NEGATIVE); UR BLOOD (Dip) 3+ mg/dL (NEGATIVE); UR CLARITY SLIGHTLY CLOUDY (CLEAR); UR COLOR YELLOW (YELLOW); UR GLUCOSE (Dip) NEGATIVE (NEGATIVE); UR KETONES (Dip) NEGATIVE (NEGATIVE); UR LEUKOCYTE ESTERASE (Dip) 2+ Leu/ul (NEGATIVE); UR NITRITE (Dip) NEGATIVE (NEGATIVE); UR RBC 37 /HPF (0-5); UR SPECIFIC GRAVITY (Dip) 1.014 (1.003-1.030); UR TOTAL PROTEIN (Dip) NEGATIVE (NEGATIVE); UR UROBILINOGEN (Dip) NEGATIVE (NEGATIVE)
[2016-10-09 07:16] LABS: ALBUMIN 3.7 g/dl (3.3-4.9); ALBUMIN/GLOBULIN RATIO 1.23; BILIRUBIN,INDIRECT 0.3 mg/dl (0-1.1); BILIRUBIN,TOTAL 0.3 mg/dl (0.2-1.3); CALCIUM 9.4 mg/dl (8.4-10.2); CREATININE 0.62 mg/dl (0.44-1.00); POTASSIUM 3.9 mmol/L (3.5-5.1); TOTAL PROTEIN 6.7 g/dl (6.1-8.1)
[2016-10-09 07:18] LABS: INR 0.92; PARTIAL THROMBOPLASTIN TIME 24.7 Sec (25.0-35.0); PROTIME 12.4 Sec (12.2-14.2)
--- NOTE | 2016-10-09 07:49 | RADRPT ---
PROCEDURE: US Obstetric greater than 14 weeks. CLINICAL INDICATION: Labor TECHNIQUE: Multiple sonographic images of the pelvis were obtained. Transabdominal imaging only w as performed. The images were reviewed on a PACS workstation. COMPARISON: 10/06/2016 FINDINGS: Single intrauterine gestation. Cephalic presentation. heart rate is 144 bpm. The cervix is not well visualized. Measurements were made in order to determine age. The results are as follows: BPD = 9.29 cm HC = 34.36 cm AC = 37.24 cm FL = 7.20 cm Estimated gestational age is 38 weeks 6 days (based on ultrasound measurements). Estimated date of delivery is 10/17/2016. EFW = 3866 g +/- 580 g. (93%) The placenta is anterior. There is no evidence for an abruption or placenta previa. IMPRESSION: 1. Single live intrauterine gestation of 38 weeks 6 days (based on ultrasound measurements), as abo ve. RPTAT: HH .Juan Mclean MD, MD Date Time Electronically viewed and signed by .Juan Mclean MD, on 10/09/2016 07:49 .R/
[2016-10-09] MEDS ORDERED: DIPHENHYDRAMINE 50 MG INJ IV PRN (08:00)
[2016-10-09] MEDS ORDERED: FENTAnyl 2MCG/ML-ROPIV 0.2% 100 ML BAG EPI SCH (08:00)
[2016-10-09] MEDS ORDERED: ONDANSETRON 4 MG INJ IV PRN (08:00)
[2016-10-09] MEDS ORDERED: NALOXONE (0.4 MG/ML) INJ IV PRN (08:00)
--- NOTE | 2016-10-09 08:10 | TRIAGE ---
OB Triage Datetime Report Generated by CPN: 10/09/2016 08:09 Datetime: 10/09/2016 08:00 Labor Evaluation Frequency: 2-5 Monitor Mode: External Duration (sec)2399: 80-120 Quality: Strong Pattern: Normal: <= 5 Contractions in 10 Minutes Resting Tone Butternut: Relaxed Heart Rate FHR Baseline Rate: 145 Monitor Mode: External US FHR Baseline Changes: No Baseline Change Variability: Moderate 6-25 bpm Accelerations: 15X15 Decelerations: None Category: Category I Datetime: 10/09/2016 07:58 Comments: maternal movement, monitor picking up maternal HR Datetime: 10/09/2016 07:40 Assessment Type: Ongoing Assessment Maternal Assessment Level of Consciousness: Fully Conscious DTR's/Clonus: DTRs 2+; No Clonus Headache: Denies Blurred Vision: No Respiratory Effort: Unlabored; Regular Rhythm; Equal Expansion Breath Sounds, Left: Clear and Equal Breath Sounds, Right: Clear and Equal Nausea/Vomiting: Denies RUQ Epigastric Pain: Denies Lower Extremities Edema: Bilateral Lower Extremities Degree: 1+ Upper Extremities Edema: Bilateral Upper Extremities Degree: 1+ Facial Edema: None Fall Risk Assessment History of Falling: (0) No Secondary Diagnosis: (0) No Ambulatory Aid: (0) Bedrest/Nurse Assist IV Therapy: (20) Yes Gait: (0) Normal/Bedrest/Immobile Mental Status: (0) Oriented to Own Ability Fall Score: 20 Fall Risk Score Definition: No Risk: No action required Datetime: 10/09/2016 07:34 Labor Evaluation Frequency: 2-5 Monitor Mode: External Duration (sec)2399: 80-100 Quality: Strong Pattern: Normal: <= 5 Contractions in 10 Minutes Resting Tone Butternut: Relaxed Heart Rate FHR Baseline Rate: 145 Monitor Mode: External US Variability: Moderate 6-25 bpm Accelerations: 15X15 Decelerations: None Category: Category I Pain Assessment Pain Scale: 7 Pain Presence: Intermittent Pain Type: Contraction Pain Location: Abdomen Pain Goal: 3 Pain Relief Measures: Comfort Measures Datetime: 10/09/2016 07:32 Pain Assessment Pain Scale: 7 Pain Presence: Intermittent Pain Type: Contraction Pain Location: Abdomen Pain Goal: 3 Pain Relief Measures: Comfort Measures Pain Assessment Comments: PT REQUESTING EPIDURAL, PRE-EPIDURAL IV BOLUS STARTED. Datetime: 10/09/2016 07:20 Comments: US TECHS AT BEDSIDE PERFORMING US EFW Datetime: 10/09/2016 07:00 Labor Evaluation Frequency: 2-3.5 Monitor Mode: External Duration (sec)2399: 60-100 Quality: Strong Pattern: Normal: <= 5 Contractions in 10 Minutes Resting Tone Butternut: Relaxed Heart Rate FHR Baseline Rate: 140 Monitor Mode: External US FHR Baseline Changes: No Baseline Change Variability: Marked >25 bpm Accelerations: 15X15 Decelerations: None Category: Category I Datetime: 10/09/2016 06:30 Labor Evaluation Frequency: 1.5-4 Monitor Mode: External Duration (sec)2399: 60-110 Quality: Strong Pattern: Normal: <= 5 Contractions in 10 Minutes Resting Tone Butternut: Relaxed Heart Rate FHR Baseline Rate: 140 Monitor Mode: External US FHR Baseline Changes: No Baseline Change Variability: Moderate 6-25 bpm Accelerations: 15X15 Decelerations: None Category: Category I Pain Assessment Pain Scale: 6 Pain Presence: Intermittent Pain Type: Contraction Pain Location: Abdomen; Perineum Pain Relief Measures: Comfort Measures Pain Assessment Comments: PT REQUESTS EPIDURAL Datetime: 10/09/2016 06:05 Assessment Type: Admission Assessment Maternal Assessment Level of Consciousness: Fully Conscious DTR's/Clonus: DTRs 2+; No Clonus Headache: Denies Blurred Vision: No Respiratory Effort: Unlabored; Regular Rhythm; Equal Expansion Breath Sounds, Left: Clear and Equal Breath Sounds, Right: Clear and Equal Nausea/Vomiting: Denies RUQ Epigastric Pain: Denies Lower Extremities Edema: None Degree: None Upper Extremities Edema: None Degree: None Facial Edema: None Fall Risk Assessment History of Falling: (0) No Secondary Diagnosis: (0) No Ambulatory Aid: (0) Bedrest/Nurse Assist IV Therapy: (20) Yes Gait: (0) Normal/Bedrest/Immobile Mental Status: (0) Oriented to Own Ability Fall Score: 20 Fall Risk Score Definition: No Risk: No action required Datetime: 10/09/2016 05:55 Stage of : OB Triage Temperature Route: Oral Labor Evaluation Frequency: 2-3 Monitor Mode: External Duration (sec)2399: 80-150 Quality: Moderate Pattern: Normal: <= 5 Contractions in 10 Minutes Resting Tone Butternut: Relaxed Heart Rate FHR Baseline Rate: 140 Monitor Mode: External US Variability: Moderate 6-25 bpm Accelerations: 15X15 Decelerations: None Category: Category I Pain Assessment Pain Scale: 6 Pain Presence: Intermittent Pain Type: Sharp; Contraction Pain Location: Abdomen; Back Pain Goal: 5 Pain Relief Measures: Comfort Measures Datetime: 10/09/2016 05:39 Vaginal Exam Dilatation (cms): 3.5 Effacement (%): 80 Station: -2 Exam By: ANGELITA Vaginal Bleeding: Scant Cervix, Consistency: Soft Cervix, Position: Midposition Datetime: 10/09/2016 05:35 Pool: Negative Datetime: 10/09/2016 05:32 Assessment Type: Triage Time of Arrival: 10/09/2016 05:12 EGA: 38.1 Arrived By: Wheelchair Arrived From: Home Chief Complaint: CXS SINCE 0200, LEAKIN LITTLIE BIT SINCE 10/08/16 AM PER PT. Movement: Present Contractions: Regular Time Contractions Began: 10/09/2016 02:00 Contractions: 4-5 MIN Rupture of Membranes: Unsure Vaginal Bleeding: Scant Patient Complaints: Contractions Time Provider Notified: 10/09/2016 05:45 Provider Notified: DONNELL Initial Plan: STERILE SPECULUM,ROM PLUS, NITRIZINE, VE, PIH PANEL Maternal Assessment Level of Consciousness: Fully Conscious DTR's/Clonus: DTRs 2+; No Clonus Headache: Denies Blurred Vision: No Respiratory Effort: Unlabored; Regular Rhythm; Equal Expansion Breath Sounds, Left: Clear and Equal Breath Sounds, Right: Clear and Equal Nausea/Vomiting: Denies RUQ Epigastric Pain: Denies Lower Extremities Edema: None (Annotations: OBESE PT.) Upper Extremities Edema: None Facial Edema: None Fall Risk Assessment History of Falling: (0) No Secondary Diagnosis: (0) No Ambulatory Aid: (0) Bedrest/Nurse Assist IV Therapy: (0) No Gait: (0) Normal/Bedrest/Immobile Mental Status: (0) Oriented to Own Ability Fall Score: 0 Fall Risk Score Definition: No Risk: No action required Datetime: 10/06/2016 20:22 EGA: 37.5 Datetime: 10/05/2016 14:28 Fall Score: 0 Fall Risk Score Definition: No Risk: No action required Datetime: 10/05/2016 14:27 EGA: 37.4 Datetime: 10/03/2016 21:45 EGA: 37.2 Fall Score: 0 Fall Risk Score Definition: No Risk: No action required Datetime: 09/29/2016 21:40 Fall Score: 0 Fall Risk Score Definition: No Risk: No action required Datetime: 09/29/2016 21:39 EGA: 36.5 Datetime: 09/25/2016 21:00 Fall Score: 0 Fall Risk Score Definition: No Risk: No action required Datetime: 09/25/2016 20:45 EGA: 36.1 Datetime: 09/21/2016 20:22 Fall Score: 0 Fall Risk Score Definition: No Risk: No action required Datetime: 09/21/2016 20:00 EGA: 35.4 Datetime: 09/19/2016 20:00 EGA: 35.2 Datetime: 09/16/2016 21:19 EGA: 34.6 Datetime: 09/04/2016 08:30 Fall Score: 0 Fall Risk Score Definition: No Risk: No action required Datetime: 09/03/2016 20:45 Fall Score: 20 Fall Risk Score Definition: No Risk: No action required Datetime: 09/03/2016 07:41 Fall Score: 0 Fall Risk Score Definition: No Risk: No action required Datetime: 09/02/2016 20:07 Fall Score: 20 Fall Risk Score Definition: No Risk: No action required Datetime: 09/02/2016 07:58 Fall Score: 20 Fall Risk Score Definition: No Risk: No action required Datetime: 09/01/2016 21:50 Fall Score: 0 Fall Risk Score Definition: No Risk: No action required Datetime: 09/01/2016 21:39 EGA: 32.5 Datetime: 09/01/2016 19:38 EGA: 32.5 Fall Score: 0 Fall Risk Score Definition: No Risk: No action required
[2016-10-09 08:52] LABS: UR SQUAMOUS EPITHELIAL CELL MODERATE /HPF (FEW)
[2016-10-09] MEDS: LACTATED RINGER'S 1,000 ML IV SCH ×4 (09:28→14:32)
[2016-10-09] MEDS ORDERED: LABE200T43 PO (09:51)
[2016-10-09] MEDS ORDERED: AMPICILLIN 1 GM/NS (PMX) 50 ML IV SCH (10:00)
[2016-10-09] MEDS ORDERED: LABETALOL 200 MG TAB PO SCH (10:00)
[2016-10-09] MEDS ORDERED: MINERAL OIL LIGHT 10 ML VIAL TOP ONE (10:30)
[2016-10-09] MEDS ORDERED: ACETAMINOPHEN 325 MG TAB PO PRN (13:30)
[2016-10-09] MEDS ORDERED: GENTAMICIN 120 MG/NS (PMX) 100 ML IVPB SCH (14:00)
[2016-10-09] MEDS ORDERED: AMPICILLIN 2 GM/NS (PMX) 100 ML IVPB SCH (14:30)
[2016-10-09] MEDS ORDERED: LACTATED RINGER'S 1,000 ML IV ONE (15:33)
[2016-10-09] MEDS ORDERED: METOCLOPRAMIDE 10 MG INJ IV ONE (16:00)
[2016-10-09] MEDS ORDERED: FAMOTIDINE 20 MG INJ IV ONE (16:00)
[2016-10-09] MEDS ORDERED: CITRIC ACID/SODIUM CITRATE 15 ML CUP PO ONE (16:00)
--- NOTE | 2016-10-09 17:52 | HP ---
Date/Time of Note Date/Time of Note DATE: 10/09/16 TIME: 17:36 OB - History Hx of Present Free Text/Dictation 41 y.o at 38w1d came to triage in labor who was allowed for trial by her OB. Patient had with last after ist delivered by cesaarean section She is known to have chronic hypertension ,placed on labetalol 100mg bid by MFM on admissin she was normotensive. also had low TOÑO-A, elevated 1hr gtt f/b nl 3hr gtt admitted for trial labor after delivery by her OB Chief Complaint: in labor Estimated Due Date: Oct 22, 2016 : 3 Para: 2 Spontaneous : 0 Therapeutic : 0 Care: Good Care Ultrasounds: Normal mid trimester US Obstetrical Complications: Other (chronic hypertension) Medical Complications: Other (chronic hypertension) Other Concerns: AMA low TOÑO-A previous ccesarean section for trial labor Past Family/Social History * Past Medical, Surgical, Family and Obstetric Histories reviewed from chart. Blood Type: O+ Rubella: immune RPR/VDRL: Negative GBS Status: Negative HBsAG: Negative OB Admission Exam Vital Signs Vital Signs Vital Signs Date Time Temp Pulse Resp B/P Pulse Ox O2 Delivery O2 Flow Rate FiO2 10/09/16 06:16 98.2 107 20 135/85 Room Air Physical Exam HEENT: WNL Heart: Rhythm Normal Lungs: Clear, Equal Abdomen: WNL Extremities: Normal Reflexes: Normal Cervical Dilatation: other Effacement: Other Station: Other Membranes: Intact Amniotic Fluid: Unevaluable Heart Rate: 150's Accelerations: Accelerations Present Decelerations: No Decelerations Varibility: Moderate Contractions on Admission: < 5 Minutes Apart Intensity: Moderate Last 72 hours Lab Results CBC & BMP 10/09/16 06:00 Liver Function Test 10/09/16 06:00 Alanine Aminotransferase (ALT/SGPT) 51 Albumin 3.7 Alkaline Phosphatase 210 H Aspartate Amino Transf (AST/SGOT) 28 Direct Bilirubin 0.00 Total Protein 6.7 OB Assessment/Plan Reason for admission: active labor Other Assessment: IUP 38w1d previous section Trial of labor Plan: Expectant Management RAYMOND DALEY MD Oct 09, 2016 17:46
--- NOTE | 2016-10-09 17:57 | LDN ---
Date/Time of Note Date/Time of Note DATE: 10/09/16 TIME: 17:53 Delivery Summary normal vaginal delivery Weeks of Gestation 38w1d Placenta Delivered: Spontaneously Meconium: none Episiotomy: No Perineal laceration: 0 Anesthesia type: Epidural Estimated blood loss: 150 Sponge & Needle done & correct: Yes All needle counts correct: Yes Any foreign bodies felt in the: No Problems: Delivery Information Sex Infant Sex: male Apgars 1 Minute: 8 5 Minute: 9 Suctioning Nose & mouth suctioned at warren: Yes Umbilical Cord Umbilical cord with: 3 Vessels Cord presentations: no nuchal cord Cord Blood was obtained: Yes Mother & Baby Disposition Disposition Mom & Baby to Maternity; Good: Yes Mom transferred to: Other () Baby to NICU: No RAYMOND DALEY MD Oct 09, 2016 17:57
[2016-10-09 20:30] VITALS: BP 140/77; PULSE 111; RESP 18
[2016-10-09] MEDS ORDERED: LANOLIN 7 GM TUBE TOP PRN (21:00)
[2016-10-09] MEDS ORDERED: BENZOCAINE 20% 56 ML SPRAY TOP PRN (21:00)
[2016-10-09] MEDS ORDERED: ACETAMINOPHEN/CODEINE #3 TAB PO PRN ×2 (21:00)
[2016-10-09] MEDS ORDERED: WITCH HAZEL/GLYCERIN PAD PR PRN (21:00)
[2016-10-09] MEDS ORDERED: DIBUCAINE 1% 30 GM OINT PR PRN (21:00)
[2016-10-09] MEDS ORDERED: ZOLPIDEM 5 MG TAB PO PRN (21:00)
[2016-10-09] MEDS: MAGNESIUM HYDROXIDE 30ML CUP PO SCH (21:43)
[2016-10-09] MEDS: LABETALOL 200 MG TAB PO SCH (21:44)
[2016-10-09 21:45] VITALS: BP 148/71; PULSE 106; RESP 18
[2016-10-09] MEDS: SENNA/DOCUSATE NA (8.6MG/50MG) TAB PO SCH (21:45)
[2016-10-09] MEDS: CIPROFLOXACIN 400MG/D5W 200 ML IVPB SCH (23:13)
[2016-10-09] MEDS: LACTATED RINGER'S 1,000 ML IV* SCH (23:13)
[2016-10-09] MEDS: IBUPROFEN 600 MG TAB PO SCH (23:16)
[2016-10-10] VITALS: BP 116/66; PULSE 92; RESP 18
[2016-10-10 04:00] VITALS: BP 118/65; PULSE 82; RESP 18
[2016-10-10] MEDS: LACTATED RINGER'S 1,000 ML IV* SCH ×3 (04:56→20:51)
[2016-10-10] MEDS: IBUPROFEN 600 MG TAB PO SCH ×3 (05:38→17:38)
[2016-10-10 06:58] LABS: ADD SCAN DIFF NO
[2016-10-10 07:04] LABS: BASOPHILS % 0.1 % (0.0-2.0); EOSINOPHILS % 0.2 % (0.0-7.0); HEMATOCRIT 27.6 % (37.0-47.0); HEMOGLOBIN 9.1 g/dl (12.0-16.0); LYMPHOCYTES # 1.4 10^3/ul (0.8-2.9); MEAN CORPUSCULAR HEMOGLOBIN 28.3 pg (29.0-33.0); MEAN CORPUSCULAR VOLUME 85.7 fl (82.0-101.0); MEAN PLATELET VOLUME 9.8 fl (7.4-10.4); MONOCYTES % 6.4 % (0.0-11.0); NEUTROPHIL # 13.2 10^3/ul (1.6-7.5); NEUTROPHILS % 83.3 % (39.0-77.0); PLATELET COUNT 172 10^3/UL (140-415); RED BLOOD COUNT 3.22 10^6/ul (4.20-5.40); RED CELL DISTRIBUTION WIDTH 15.2 % (11.5-14.5); WHITE BLOOD COUNT 15.8 10^3/ul (4.8-10.8)
[2016-10-10 08:15] VITALS: BP 106/55; PULSE 78
[2016-10-10] MEDS: SENNA/DOCUSATE NA (8.6MG/50MG) TAB PO SCH ×2 (09:00→20:49)
[2016-10-10] MEDS: MAGNESIUM HYDROXIDE 30ML CUP PO SCH ×2 (09:00→20:50)
[2016-10-10] MEDS: LABETALOL 200 MG TAB PO SCH ×2 (10:00→20:50)
[2016-10-10] MEDS: CIPROFLOXACIN 400MG/D5W 200 ML IVPB SCH ×2 (10:10→20:44)
[2016-10-10 16:00] VITALS: BP 107/61; PULSE 72; RESP 18
--- NOTE | 2016-10-10 16:39 | DS ---
Date/Time of Note Date/Time of Note home next day DATE: 10/10/16 TIME: 16:38 Obstetrical Discharge Record Final Diagnosis Final Diagnosis: Term delivered Vaginal Delivery Obstetrical Delivery: Spontaneous Complications Other (previous C/S ) Condition on Discharge Physical Assessment Last Vitals: see nurses notes Voiding: Yes Bowel Movement: Yes Breast: Soft, non-tender, Filling Fundus: Firm Abdomen and Incision: soft bs + Episiotomy: NA Calf Tenderness: No Patient Condition: Good SOFIA TORRES MD Oct 10, 2016 16:39
--- NOTE | 2016-10-10 16:40 | PD.PPDC ---
CLIENT PARTNER Discharge Instruction Provider Information Physician Information 41 y/o female had Condition Patient Condition: Good Diet Diet: Resume Regular Diet Activity/Restrictions Activity: Normal Activity May Shower Restrictions: Nothing in the Vagina Return to Work or School: Oct 27, 2016 Follow-up Follow-up with Physician: 4, Week/Weeks (in clinic ) Return to clinic for OB Instructions: Breast Tenderness Depression SOFIA TORRES MD Oct 10, 2016 16:40
[2016-10-10] MEDS ORDERED: LABE200T43 PO (16:42)
[2016-10-10] MEDS ORDERED: IBUP-1542 PO (16:42)
[2016-10-10 20:00] VITALS: BP 109/65; PULSE 81; RESP 18
[2016-10-11] MEDS: IBUPROFEN 600 MG TAB PO SCH ×4 (00:43→15:36)
[2016-10-11 03:39] VITALS: BP 123/77; PULSE 81; RESP 17
[2016-10-11] MEDS: LACTATED RINGER'S 1,000 ML IV* SCH ×3 (04:56→20:31)
[2016-10-11 08:00] VITALS: BP 120/81; PULSE 78; RESP 18
[2016-10-11 08:22] LABS: ADD SCAN DIFF NO
[2016-10-11 08:26] LABS: BASOPHILS % 0.2 % (0.0-2.0); EOSINOPHILS # 0.1 10^3/ul (0.0-0.5); EOSINOPHILS % 0.8 % (0.0-7.0); HEMATOCRIT 28.3 % (37.0-47.0); HEMOGLOBIN 8.9 g/dl (12.0-16.0); LYMPHOCYTES # 1.9 10^3/ul (0.8-2.9); LYMPHOCYTES % 12.6 % (15.0-51.0); MEAN CORPUSCULAR HEMOGLOBIN 27.7 pg (29.0-33.0); MEAN CORPUSCULAR HGB CONC 31.4 g/dl (32.0-37.0); MEAN CORPUSCULAR VOLUME 88.2 fl (82.0-101.0); MEAN PLATELET VOLUME 10.1 fl (7.4-10.4); MONOCYTE # 0.9 10^3/ul (0.3-0.9); MONOCYTES % 6.2 % (0.0-11.0); NEUTROPHIL # 11.8 10^3/ul (1.6-7.5); NEUTROPHILS % 79.1 % (39.0-77.0); PLATELET COUNT 193 10^3/UL (140-415); RED BLOOD COUNT 3.21 10^6/ul (4.20-5.40); RED CELL DISTRIBUTION WIDTH 15.6 % (11.5-14.5)
[2016-10-11] MEDS ORDERED: VARICELLA VACCINE LIVE/PF 1,350 UNIT/0.5 ML ML SC* ONE (09:00)
[2016-10-11] MEDS ORDERED: DIPHTH/TET/ACEL PERTUSS (ADULT) 0.5 ML VIAL IM* ONE (09:00)
[2016-10-11] MEDS ORDERED: MEASLES,MUMPS,RUBELLA VACCINE INJ SC* ONE (09:00)
[2016-10-11] MEDS: CIPROFLOXACIN 400MG/D5W 200 ML IVPB SCH (09:36)
[2016-10-11] MEDS: LABETALOL 200 MG TAB PO SCH ×2 (09:36→21:41)
[2016-10-11] MEDS: MAGNESIUM HYDROXIDE 30ML CUP PO SCH ×2 (09:36→21:40)
[2016-10-11] MEDS: SENNA/DOCUSATE NA (8.6MG/50MG) TAB PO SCH ×2 (09:36→21:40)
[2016-10-11] MEDS: AMOXICILLIN/CLAV 500 MG TAB PO SCH ×2 (15:38→21:40)
[2016-10-11 15:56] VITALS: BP 126/75; PULSE 72; RESP 18
[2016-10-11 20:30] VITALS: BP 144/89; PULSE 73; RESP 17
[2016-10-12] MEDS: IBUPROFEN 600 MG TAB PO SCH ×4 (00:04→18:05)
[2016-10-12 03:33] VITALS: BP 123/93; PULSE 75; RESP 18
[2016-10-12] MEDS: LACTATED RINGER'S 1,000 ML IV* SCH (04:56)
[2016-10-12 07:31] LABS: ADD SCAN DIFF NO
[2016-10-12 07:54] LABS: BASOPHILS % 0.5 % (0.0-2.0); EOSINOPHILS # 0.1 10^3/ul (0.0-0.5); EOSINOPHILS % 1.4 % (0.0-7.0); HEMATOCRIT 28.5 % (37.0-47.0); HEMOGLOBIN 9.1 g/dl (12.0-16.0); LYMPHOCYTES # 1.8 10^3/ul (0.8-2.9); MEAN CORPUSCULAR HGB CONC 31.9 g/dl (32.0-37.0); MEAN CORPUSCULAR VOLUME 87.7 fl (82.0-101.0); MEAN PLATELET VOLUME 9.8 fl (7.4-10.4); MONOCYTE # 0.5 10^3/ul (0.3-0.9); MONOCYTES % 5.7 % (0.0-11.0); NEUTROPHILS % 70.3 % (39.0-77.0); PLATELET COUNT 219 10^3/UL (140-415); RED BLOOD COUNT 3.25 10^6/ul (4.20-5.40); RED CELL DISTRIBUTION WIDTH 15.1 % (11.5-14.5); WHITE BLOOD COUNT 8.5 10^3/ul (4.8-10.8)
[2016-10-12 09:00] VITALS: BP 150/93; PULSE 86; RESP 20
[2016-10-12] MEDS: AMOXICILLIN/CLAV 500 MG TAB PO SCH ×2 (09:27→13:42)
[2016-10-12] MEDS: MAGNESIUM HYDROXIDE 30ML CUP PO SCH (09:28)
[2016-10-12] MEDS: SENNA/DOCUSATE NA (8.6MG/50MG) TAB PO SCH (09:28)
[2016-10-12] MEDS: LABETALOL 200 MG TAB PO SCH (09:29)
[2016-10-12 10:52] VITALS: BP 144/90; PULSE 82; RESP 18
[2016-10-12 12:01] VITALS: BP 138/91; PULSE 71; RESP 18
[2016-10-12 15:55] VITALS: BP 155/74; PULSE 72; RESP 18
--- NOTE | 2016-10-12 16:49 | PN ---
Date/Time of Note Date/Time of Note late entry DATE: 10/11/16 Assessment/Plan VTE Prophylaxis VTE Prophylaxis Intervention: ambulation Lines/Catheters IV Catheter Type (from Nrs): Saline Lock Assessment/Plan Assessment/Plan PPD # 2 S/P vaginal delivery will keep mother for infant consideration Subjective 24 Hr Interval Summary Free Text/Dictation No major complaints Constitutional: improved, no complaints Eyes: no complaints ENT: no complaints Respiratory: no complaints Cardiovascular: no complaints Gastrointestinal: no complaints Genitourinary: no complaints, other (uterus at belly bottom ) Musculoskeletal: no complaints Skin: no complaints Neurologic: no complaints Endocrine: no complaints Lymphatic: no complaints Psychological: nl mood/affect, no complaints Immunologic: no complaints Exam/Review of Systems Vital Signs Vitals Vital Signs Date Time Temp Pulse Resp B/P Pulse Ox O2 Delivery O2 Flow Rate FiO2 10/12/16 12:01 98.4 71 18 138/91 Room Air Intake and Output 10/11/16 10/11/16 10/12/16 15:00 23:00 07:00 Intake Total 300 ml Balance 300 ml Exam Constitutional: alert, oriented, well developed Psych: nl mood/affect, no complaints Head: atraumatic, normocephalic Eyes: EOMI, PERRL, nl conjunctiva, nl lids, nl sclera ENMT: nl external ears & nose, nl lips & teeth, nl nasal mucosa & septum Neck: non-tender, supple Respiratory: clear to auscultation, normal air movement Cardiovascular: nl pulses, regular rate and rhythm Gastrointestinal: nl liver, spleen, non-tender, soft Genitourinary - Female: uterus (at blly bottom) Musculoskeletal: nl extremities to inspection, nl gait and stance Extremities: normal pulses Neurological: DECISION UNIT RN II-XII intact, nl mental status, nl speech, nl strength Lymph: nl lymph nodes Results Result Diagram: 10/12/16 0653 10/09/16 0600 Results 24 hrs Laboratory Tests Test 10/12/16 06:53 White Blood Count 8.5 # Red Blood Count 3.25 L Hemoglobin 9.1 L Hematocrit 28.5 L Mean Corpuscular Volume 87.7 Mean Corpuscular Hemoglobin 28.0 L Mean Corpuscular Hemoglobin Concent 31.9 L Red Cell Distribution Width 15.1 H Platelet Count 219 Mean Platelet Volume 9.8 Neutrophils % 70.3 Lymphocytes % 21.0 Monocytes % 5.7 Eosinophils % 1.4 Basophils % 0.5 Nucleated Red Blood Cells % 0.0 Neutrophils # 6.0 Lymphocytes # 1.8 Monocytes # 0.5 Eosinophils # 0.1 Basophils # 0.0 Nucleated Red Blood Cells # 0.0 Medications Medications Current Medications Labetalol HCl (Normodyne) 200 mg BID PO Last administered on 10/12/16 09:29; Admin Dose 200 MG; Start 10/09/16 at 21:00 Ibuprofen (Motrin) 600 mg Q6 PO Last administered on 10/12/16 11:51; Admin Dose 600 MG; Start 10/10/16 at 00:00 Acetaminophen/ Codeine Phosphate (Tylenol No.3) 1 tab Q4H PRN PO PAIN LEVEL 1-5 ; Start 10/09/16 at 21:00 Acetaminophen/ Codeine Phosphate (Tylenol No.3) 2 tab Q4H PRN PO PAIN LEVEL 6- 10 Last administered on 10/09/16 21:44; Admin Dose 2 TAB; Start 10/09/16 at 21: 00 Zolpidem Tartrate (Ambien) 5 mg QHS PRN PO INSOMNIA; Start 10/09/16 at 21:00 Senna/Docusate Sodium (Senokot-S) 1 tab BID PO Last administered on 10/12/16 09:28; Admin Dose 1 TAB; Start 10/09/16 at 21:00 Magnesium Hydroxide 30 ml 30 ml Q12 PO Last administered on 10/12/16 09:28; Admin Dose 30 ML; Start 10/09/16 at 21:00 Oxytocin/Lactated Ringer's 500 ml @ 0 mls/hr ONCE PRN IV For Hemorrhage Management; Start 10/09/16 at 21:00 Methylergonovine Maleate (Methergine) 0.2 mg ONCE PRN IM VAGINAL BLEEDING; Start 10/09/16 at 21:00 Carboprost Tromethamine (Hemabate) 250 mcg ONCE PRN IM VAGINAL BLEEDING; Start 10/09/16 at 21:00 Misoprostol (Cytotec) 1,000 mcg ONCE PRN [place] VAGINAL BLEEDING; Start 10/09/16 at 21:00 Amoxicillin/ Clavulanate Potassium (Augmentin) 500 mg TID PO Last administered on 10/12/16 13:42; Admin Dose 500 MG; Start 10/11/16 at 13:00 SOFIA TORRES MD Oct 12, 2016 16:49
== END 2016-10-12 18:50 | disposition home or self-care (01) | DRG 775 ==
LOC: OBT 05:19 → L-D 05:21 → OBT 05:45 → PP1 20:38
PROVIDERS: ADMIT Obstetrics & Gynecology; ATTEND Obstetrics & Gynecology
PROC: 10E0XZZ Delivery of Products of Conception, External Approach (ICD-10-PCS; principal; 2016-10-09)
DX: O16.4 Unspecified maternal hypertension, complicating childbirth (principal); Z37.0 Single live birth; Z3A.38 38 weeks gestation of pregnancy
CPT/HCPCS: 62319; 76816; 80053; 81001; 84112; 84560; 85025; 85610; 85730; 86592; 86900; 86901; 87040; 87086; 90715; 90716; 99464; G0463; J0290; J0744; J1580; J2590; J3010; J7120